=== PATIENT | male | born 1955 | race Caucasian/White ===

== ENCOUNTER 2018-01-09 17:38 | Inpatient (IN) | payer OTHER, MEDICAID, SELFPAY ==
[2018-01-09] VITALS (7 sets, daily range): BP systolic 105–140; BP diastolic 59–85; PULSE 80–111; RESP 10–20; TEMP 36.5–37; O2SAT 93–100; BMI 21.8
--- NOTE | 2018-01-09 18:22 | DI.RAD.S_ITS ---
PROCEDURE: XR CHEST 1V INDICATIONS: increased pain, known renal/gallbladder ca TECHNIQUE: One view of the chest was acquired. COMPARISON: [facility], , CHEST 2 VIEW, 11/11/2014, 10:34. [facility], , CHEST 2 VIEW, 08/03/2012, 14:21. [facility], CR, CHEST 2 VIEW, 05/13/2009, 9:32. FINDINGS: Surgical changes and devices: None. Lungs and pleura: No pleural effusions or pneumothorax. There is a hazy opacity projecting over the left midlung field/perihilar region. Mediastinum: Mediastinal contours appear normal. Heart size is normal. Bones and chest wall: No suspicious bony lesions. Overlying soft tissues appear unremarkable. Chronic right third rib deformity again noted. IMPRESSION: There is a hazy opacity projecting over the left midlung field/perihilar region. This favored to represent atelectasis or superimposition of structures such as the ribs and pulmonary vasculature. However, consider outpatient followup dedicated PA and lateral chest radiographs or CT of the chest if there is clinical concern for malignancy, as this opacity cannot be clearly identified on comparison exams. Dictated by: Yaw Trotter M.D. on 01/09/2018 at 19:48 Approved by: Yaw Trotter M.D. on 01/09/2018 at 19:52
--- NOTE | 2018-01-09 18:23 | ED.ABDPAIN ---
HPI - Abdominal Pain General Chief Complaint: Abdominal Pain Stated Complaint: Abd pain Time Seen by Provider: 01/09/18 18:09 Source: patient and EMS (air lift) Mode of arrival: other (air lift) Limitations: other (etoh) History of Present Illness HPI narrative: This is a 62-year-old male who comes to the hospital for complaint of intractable pain. Patient has known gallbladder and renal cancer, he was diagnosed in August. He states that he is not interested in treatment and has not had any treatment. He states that he drinks alcohol every day and in large quantities. He has been living at home on [address] and has a caregiver name es Ventura. Today and recently his pain has been, too strong for him to control. And he feels that he is not able to care for himself at home. He has some complaints of chest pain and abdominal pain, he denies any shortness of breath. He states that he has nausea and vomiting every day when he wakes up. He states that he has been having bowel movements and urinating regularly. His abdomen has been more distended. He is unable to give me much medical history but states that he had a lot of medications sitting on his desk at home. He received 5 mg of Dilaudid EN route with air left. Patient also has had withdrawals in the past and states he has had seizures, and hallucinations before. Patient has a mother that lives in [facility], he otherwise lives alone. Related Data Home Medications Medication Instructions Recorded Confirmed ibuprofen [Advil Liqui-Gel] 200 mg PO PRN PRN #0 03/14/16 diphenhydramine HCl [Benadryl 25 mg PO Q6HP PRN #0 05/02/16 Allergy] Previous Rx's Medication Instructions Recorded lisinopril-hydrochlorothiazide 1 tab PO QDAY #90 tab 05/02/16 [Zestoretic] Disabled Parking Permit ea #1 05/31/16 ipratropium-albuterol 3 ml INH QID PRN #3 box 08/17/16 albuterol sulfate [Ventolin HFA] 0 puff INH PRN PRN #3 puff 10/26/16 buspirone 15 mg PO SEE INSTRUCTIONS #180 tab 10/26/16 cholecalciferol (vitamin D3) 50,000 unit PO QWEEK #12 cap 10/26/16 fluoxetine 40 mg PO QDAY #90 cap 10/26/16 gabapentin [Neurontin] 0 PO SEE INSTRUCTIONS #450 cap 10/26/16 spironolactone 25 mg OR QDAY #90 tab 10/26/16 tiotropium bromide [Spiriva with 18 mcg INH Q DAY #90 cap 10/26/16 HandiHaler] trazodone 150 mg PO HS #90 tab 10/26/16 Allergies Allergy/AdvReac Type Severity Reaction Status Date / Time bupropion AdvReac Unknown SOMNLESCENC Verified 01/10/18 00:46 E Review of Systems Review of Systems All systems reviewed & are unremarkable except as noted in HPI and below Constitutional Denies fever(s) Cardiovascular Reports chest pain, Denies syncope, Denies leg edema and Denies dyspnea Respiratory Denies cough, Denies dyspnea and Denies wheezing Gastrointestinal Gastrointestinal: Reports abdominal pain, Denies melena, Denies hematochezia, Reports nausea and Reports vomiting (every day) Genitourinary Denies difficulty urinating and Reports flank pain (left) Musculoskeletal Denies back pain Neurologic Denies syncope Allergic/Immunologic Denies wheezing PFSH Surgical History Status post colonoscopy Status post colonoscopy Family History Father Cancer Mother Age: 82 Dementia Social History details: Lives on [address], has caregiver Zoie. household members: none Smoking Status: Current every day smoker alcohol intake: current Exam Narrative Exam Narrative: GENERAL: Alert and oriented x 2, Patient has some confusion about where he is at initially, he is aware he is at the hospital, patient appears intoxicated and smell of etoh in room. HEENT: Head normocephalic, atraumatic, EOMI, pupils reactive, face symmetric, moist mucous membranes NECK: Supple, full range of motion CARDIOVASCULAR: Regular rate and rhythm without murmurs, rubs or gallops. RESPIRATORY: Breath sounds equal bilaterally, no wheezes rales or rhonchi. ABDOMEN: Soft, nontender, Distended. Normoactive bowel sounds all 4 quadrants. No guarding or rebound, rigidity, Patient's abdomen particularly right upper quadrant feels full with a had a hepatomegaly. : No CVA tenderness EXTREMITIES: Normal range of motion, edema. Neurovascularly intact. NEUROLOGICAL: Cranial nerves II through XII grossly intact. Moving all extremities SKIN: Warm, dry, no petechiae, no rashes or lesions. Initial Vital Signs Initial Vital Signs: Vital Signs Temperature 98.6 F 01/09/18 17:39 Pulse Rate 80 01/09/18 17:39 Respiratory Rate 18 01/09/18 17:39 Blood Pressure 140/85 01/09/18 17:39 Pulse Oximetry 100 01/09/18 17:39 Course Orders Ordered: ED Orders 01/09/18 22:18 EKG-12 Lead Routine 01/09/18 23:50 Consult to Dietitian, Adult Routine Folic Acid (Folic Acid) 1 mg PO DAILY [facility] Haloperidol (Haldol) 2 mg IV Q1HR PRN PRN Reason: Hallucinations HYDROMORPHONE TOWEL SORTER (Dilaudid 6 Mg/30 Ml) 6 mg in 30 mls @ 0 mls/hr IV Q8HR [facility] Sodium Chloride (Normal Saline 0.9%) 1,000 mls @ 125 mls/hr IV CONT [facility] Last Admin: 01/10/18 00:56 Dose: 125 mls/hr Lorazepam (Ativan) 0 mg IV CIWAPRN PRN; Protocol PRN Reason: Alcohol Withdrawal Multivitamins (Tab-A-Jessica) 1 tab PO DAILY [facility] Naloxone HCl (Narcan) 0.2 mg IV Q2MIN PRN; Protocol PRN Reason: Opiate Reversal Nicotine (Nicoderm) 21 mg TOP DAILY [facility] Last Admin: 01/10/18 03:54 Dose: 21 mg Ondansetron HCl (Zofran) 4 mg IV Q4HR PRN PRN Reason: Nausea And Vomiting Last Admin: 01/10/18 00:57 Dose: 4 mg Thiamine HCl (Vitamin B-1) 100 mg PO DAILY [facility] Stop: 01/13/18 09:01 Discontinued Medications Hydromorphone HCl (Dilaudid) 1 mg IV NOW ONE Stop: 01/09/18 20:35 Last Admin: 01/09/18 21:40 Dose: 1 mg Hydromorphone HCl (Dilaudid) 2 mg IV NOW ONE Stop: 01/09/18 22:55 Last Admin: 01/09/18 23:02 Dose: 2 mg Nicotine (Nicoderm) 21 mg TOP DAILY [facility] Vital Signs - 8 hr 01/09/18 21:00 01/09/18 22:28 01/09/18 22:50 Temperature 97.7 F Pulse Rate 111 H 94 H 95 H Respiratory Rate 20 12 20 Blood Pressure 110/59 L Blood Pressure [Left Arm] 105/72 134/85 Pulse Oximetry 95 95 96 01/10/18 00:25 Temperature 97.6 F Pulse Rate 95 H Respiratory Rate 20 Blood Pressure 134/83 Blood Pressure [Left Arm] Pulse Oximetry 96 MDM - Abdominal Pain Lab Data Attestation: I reviewed the patient's lab results. Result diagrams: 01/09/18 18:21 01/09/18 18:21 Lab Results 01/09/18 01/09/18 01/09/18 Range/Units 18:21 18:21 18:21 WBC 7.4 (4.5-11.0) X10^3/uL RBC 4.09 L (4.5-5.9) X10^6/uL Hgb 14.5 (13.5-17.5) g/dL Hct 42.5 (41-53) % MCV 103.9 H (80-100) fL MCH 35.6 H (26-34) PG MCHC 34.2 (30-36) % RDW 13.0 (11.6-14.8) % Plt Count 47 L (150-400) X10^3/uL Neut % (Auto) 63.3 (50-75) % Lymph % (Auto) 26.5 (25-40) % [place] % (Auto) 8.5 (3-14) % Eos % (Auto) 0.8 L (2-4) % Baso % (Auto) 0.9 (0-2) % Neut # (Auto) 4700 (2931-7132) /uL PT (10.1-12.7) SECONDS INR (0.9-1.3) APTT (26.4-36.2) SECONDS Sodium 142 (137-145) mmol/L Potassium 3.3 L (3.4-5.1) mmol/L Chloride 97 L (98-107) mmol/L Carbon Dioxide 27 (22-32) mmol/L BUN 3 L (9-20) mg/dL Creatinine 0.50 L (0.66-1.25) mg/dL Estimated GFR > 60.0 (>60) mL/min BUN/Creatinine Ratio 6.0 (6-22) Glucose 90 (80-110) mg/dL Calcium 7.6 L (8.4-10.2) mg/dL Total Bilirubin 2.4 H (0.2-1.3) mg/dL AST 274 H (17-59) IU/L ALT 83 H (21-72) IU/L Alkaline Phosphatase 172 H (38-126) U/L Ammonia 20.0 (9-30) umol/L Total Protein 6.7 (6.3-8.2) g/dL Albumin 3.4 L (3.5-5.0) g/dL Globulin 3.3 (1.7-4.1) g/dL Albumin/Globulin Ratio 1.0 (1.0-2.8) Lipase 125 (23-300) U/L Ethyl Alcohol 291 mg/dL 01/09/18 Range/Units 18:43 WBC (4.5-11.0) X10^3/uL RBC (4.5-5.9) X10^6/uL Hgb (13.5-17.5) g/dL Hct (41-53) % MCV (80-100) fL MCH (26-34) PG MCHC (30-36) % RDW (11.6-14.8) % Plt Count (150-400) X10^3/uL Neut % (Auto) (50-75) % Lymph % (Auto) (25-40) % [place] % (Auto) (3-14) % Eos % (Auto) (2-4) % Baso % (Auto) (0-2) % Neut # (Auto) (5655-1569) /uL PT 11.7 (10.1-12.7) SECONDS INR 1.1 (0.9-1.3) APTT 33 (26.4-36.2) SECONDS Sodium (137-145) mmol/L Potassium (3.4-5.1) mmol/L Chloride (98-107) mmol/L Carbon Dioxide (22-32) mmol/L BUN (9-20) mg/dL Creatinine (0.66-1.25) mg/dL Estimated GFR (>60) mL/min BUN/Creatinine Ratio (6-22) Glucose (80-110) mg/dL Calcium (8.4-10.2) mg/dL Total Bilirubin (0.2-1.3) mg/dL AST (17-59) IU/L ALT (21-72) IU/L Alkaline Phosphatase (38-126) U/L Ammonia (9-30) umol/L Total Protein (6.3-8.2) g/dL Albumin (3.5-5.0) g/dL Globulin (1.7-4.1) g/dL Albumin/Globulin Ratio (1.0-2.8) Lipase (23-300) U/L Ethyl Alcohol mg/dL ECG Data Attestation: I personally reviewed and interpreted this ECG as follows: Interpretation: Sinus rhythm with a rate of 90 P are 174 [place] 81 and QTC of 420. QA V1 and V2 nonspecific ST change. MDM Narrative Medical decision making narrative: Patient has been having issues with intractable pain, he received 5 mg of Dilaudid EN route which has helped him since but pain has returned. His lab work does show changes, his alcohol is 291. He has no signs of withdrawal at this time. Patient is not able to care for himself at home and has a caregiver and we did discuss hospice for a few minutes. He does not want any intervention as far as his cancer care, he would like to return home so that he can at home, he did express an interest in Hospice after it was explained that they can also come to the home he does not have to be in a facility. Spoke with Dr. Porras she accepts for observation for pain control. Plan for TOWEL SORTER, antiemetics, fluids, CIWA protocol for withdrawl per patient hx of seizures 2nd alcohol withdrawl. Discharge Plan Departure Patient Disposition: Admitted as Observation Clinical Impression: Abdominal pain, Alcohol intoxication Discharge Date/Time: 01/09/18 23:47 Interventions: ED Discharge Assessment Last Done: 01/09/18 23:02 Admit Date/Time: 01/09/18 22:39 Admit Provider: Stephanie Porras
--- NOTE | 2018-01-09 18:29 | ED_ITS ---
HPI - Abdominal Pain General Chief Complaint: Abdominal Pain Stated Complaint: Abd pain Time Seen by Provider: 01/09/18 18:09 Source: patient and EMS (air lift) Mode of arrival: other (air lift) Limitations: other (etoh) History of Present Illness HPI narrative: This is a 62-year-old male who comes to the hospital for complaint of intractable pain. Patient has known gallbladder and renal cancer, he was diagnosed in August. He states that he is not interested in treatment and has not had any treatment. He states that he drinks alcohol every day and in large quantities. He has been living at home on [address] and has a caregiver name es Ventura. Today and recently his pain has been, too strong for him to control. And he feels that he is not able to care for himself at home. He has some complaints of chest pain and abdominal pain, he denies any shortness of breath. He states that he has nausea and vomiting every day when he wakes up. He states that he has been having bowel movements and urinating regularly. His abdomen has been more distended. He is unable to give me much medical history but states that he had a lot of medications sitting on his desk at home. He received 5 mg of Dilaudid EN route with air left. Patient also has had withdrawals in the past and states he has had seizures, and hallucinations before. Patient has a mother that lives in [facility], he otherwise lives alone. Related Data Home Medications Medication Instructions Recorded Confirmed ibuprofen [Advil Liqui-Gel] 200 mg PO PRN PRN #0 03/14/16 diphenhydramine HCl [Benadryl 25 mg PO Q6HP PRN #0 05/02/16 Allergy] Previous Rx's Medication Instructions Recorded lisinopril-hydrochlorothiazide 1 tab PO QDAY #90 tab 05/02/16 [Zestoretic] Disabled Parking Permit ea #1 05/31/16 ipratropium-albuterol 3 ml INH QID PRN #3 box 08/17/16 albuterol sulfate [Ventolin HFA] 0 puff INH PRN PRN #3 puff 10/26/16 buspirone 15 mg PO SEE INSTRUCTIONS #180 tab 10/26/16 cholecalciferol (vitamin D3) 50,000 unit PO QWEEK #12 cap 10/26/16 fluoxetine 40 mg PO QDAY #90 cap 10/26/16 gabapentin [Neurontin] 0 PO SEE INSTRUCTIONS #450 cap 10/26/16 spironolactone 25 mg OR QDAY #90 tab 10/26/16 tiotropium bromide [Spiriva with 18 mcg INH Q DAY #90 cap 10/26/16 HandiHaler] trazodone 150 mg PO HS #90 tab 10/26/16 Allergies Allergy/AdvReac Type Severity Reaction Status Date / Time bupropion AdvReac Unknown SOMNLESCENC Verified 01/10/18 00:46 E Review of Systems Review of Systems All systems reviewed & are unremarkable except as noted in HPI and below Constitutional Denies fever(s) Cardiovascular Reports chest pain, Denies syncope, Denies leg edema and Denies dyspnea Respiratory Denies cough, Denies dyspnea and Denies wheezing Gastrointestinal Gastrointestinal: Reports abdominal pain, Denies melena, Denies hematochezia, Reports nausea and Reports vomiting (every day) Genitourinary Denies difficulty urinating and Reports flank pain (left) Musculoskeletal Denies back pain Neurologic Denies syncope Allergic/Immunologic Denies wheezing PFSH Surgical History Status post colonoscopy Status post colonoscopy Family History Father Cancer Mother Age: 82 Dementia Social History details: Lives on [address], has caregiver Zoie. household members: none Smoking Status: Current every day smoker alcohol intake: current Exam Narrative Exam Narrative: GENERAL: Alert and oriented x 2, Patient has some confusion about where he is at initially, he is aware he is at the hospital, patient appears intoxicated and smell of etoh in room. HEENT: Head normocephalic, atraumatic, EOMI, pupils reactive, face symmetric, moist mucous membranes NECK: Supple, full range of motion CARDIOVASCULAR: Regular rate and rhythm without murmurs, rubs or gallops. RESPIRATORY: Breath sounds equal bilaterally, no wheezes rales or rhonchi. ABDOMEN: Soft, nontender, Distended. Normoactive bowel sounds all 4 quadrants. No guarding or rebound, rigidity, Patient's abdomen particularly right upper quadrant feels full with a had a hepatomegaly. : No CVA tenderness EXTREMITIES: Normal range of motion, edema. Neurovascularly intact. NEUROLOGICAL: Cranial nerves II through XII grossly intact. Moving all extremities SKIN: Warm, dry, no petechiae, no rashes or lesions. Initial Vital Signs Initial Vital Signs: Vital Signs Temperature 98.6 F 01/09/18 17:39 Pulse Rate 80 01/09/18 17:39 Respiratory Rate 18 01/09/18 17:39 Blood Pressure 140/85 01/09/18 17:39 Pulse Oximetry 100 01/09/18 17:39 Course Orders Ordered: ED Orders 01/09/18 22:18 EKG-12 Lead Routine 01/09/18 23:50 Consult to Dietitian, Adult Routine Folic Acid (Folic Acid) 1 mg PO DAILY [facility] Haloperidol (Haldol) 2 mg IV Q1HR PRN PRN Reason: Hallucinations HYDROMORPHONE FRUIT BUYER (Dilaudid 6 Mg/30 Ml) 6 mg in 30 mls @ 0 mls/hr IV Q8HR [facility] Sodium Chloride (Normal Saline 0.9%) 1,000 mls @ 125 mls/hr IV CONT [facility] Last Admin: 01/10/18 00:56 Dose: 125 mls/hr Lorazepam (Ativan) 0 mg IV CIWAPRN PRN; Protocol PRN Reason: Alcohol Withdrawal Multivitamins (Tab-A-Jessica) 1 tab PO DAILY [facility] Naloxone HCl (Narcan) 0.2 mg IV Q2MIN PRN; Protocol PRN Reason: Opiate Reversal Nicotine (Nicoderm) 21 mg TOP DAILY [facility] Last Admin: 01/10/18 03:54 Dose: 21 mg Ondansetron HCl (Zofran) 4 mg IV Q4HR PRN PRN Reason: Nausea And Vomiting Last Admin: 01/10/18 00:57 Dose: 4 mg Thiamine HCl (Vitamin B-1) 100 mg PO DAILY [facility] Stop: 01/13/18 09:01 Discontinued Medications Hydromorphone HCl (Dilaudid) 1 mg IV NOW ONE Stop: 01/09/18 20:35 Last Admin: 01/09/18 21:40 Dose: 1 mg Hydromorphone HCl (Dilaudid) 2 mg IV NOW ONE Stop: 01/09/18 22:55 Last Admin: 01/09/18 23:02 Dose: 2 mg Nicotine (Nicoderm) 21 mg TOP DAILY [facility] Vital Signs - 8 hr 01/09/18 21:00 01/09/18 22:28 01/09/18 22:50 Temperature 97.7 F Pulse Rate 111 H 94 H 95 H Respiratory Rate 20 12 20 Blood Pressure 110/59 L Blood Pressure [Left Arm] 105/72 134/85 Pulse Oximetry 95 95 96 01/10/18 00:25 Temperature 97.6 F Pulse Rate 95 H Respiratory Rate 20 Blood Pressure 134/83 Blood Pressure [Left Arm] Pulse Oximetry 96 MDM - Abdominal Pain Lab Data Attestation: I reviewed the patient's lab results. Result diagrams: 01/09/18 18:21 01/09/18 18:21 Lab Results 01/09/18 01/09/18 01/09/18 Range/Units 18:21 18:21 18:21 WBC 7.4 (4.5-11.0) X10^3/uL RBC 4.09 L (4.5-5.9) X10^6/uL Hgb 14.5 (13.5-17.5) g/dL Hct 42.5 (41-53) % MCV 103.9 H (80-100) fL MCH 35.6 H (26-34) PG MCHC 34.2 (30-36) % RDW 13.0 (11.6-14.8) % Plt Count 47 L (150-400) X10^3/uL Neut % (Auto) 63.3 (50-75) % Lymph % (Auto) 26.5 (25-40) % Nance % (Auto) 8.5 (3-14) % Eos % (Auto) 0.8 L (2-4) % Baso % (Auto) 0.9 (0-2) % Neut # (Auto) 4700 (0983-9716) /uL PT (10.1-12.7) SECONDS INR (0.9-1.3) APTT (26.4-36.2) SECONDS Sodium 142 (137-145) mmol/L Potassium 3.3 L (3.4-5.1) mmol/L Chloride 97 L (98-107) mmol/L Carbon Dioxide 27 (22-32) mmol/L BUN 3 L (9-20) mg/dL Creatinine 0.50 L (0.66-1.25) mg/dL Estimated GFR > 60.0 (>60) mL/min BUN/Creatinine Ratio 6.0 (6-22) Glucose 90 (80-110) mg/dL Calcium 7.6 L (8.4-10.2) mg/dL Total Bilirubin 2.4 H (0.2-1.3) mg/dL AST 274 H (17-59) IU/L ALT 83 H (21-72) IU/L Alkaline Phosphatase 172 H (38-126) U/L Ammonia 20.0 (9-30) umol/L Total Protein 6.7 (6.3-8.2) g/dL Albumin 3.4 L (3.5-5.0) g/dL Globulin 3.3 (1.7-4.1) g/dL Albumin/Globulin Ratio 1.0 (1.0-2.8) Lipase 125 (23-300) U/L Ethyl Alcohol 291 mg/dL 01/09/18 Range/Units 18:43 WBC (4.5-11.0) X10^3/uL RBC (4.5-5.9) X10^6/uL Hgb (13.5-17.5) g/dL Hct (41-53) % MCV (80-100) fL MCH (26-34) PG MCHC (30-36) % RDW (11.6-14.8) % Plt Count (150-400) X10^3/uL Neut % (Auto) (50-75) % Lymph % (Auto) (25-40) % [place]ance % (Auto) (3-14) % Eos % (Auto) (2-4) % Baso % (Auto) (0-2) % Neut # (Auto) (0572-9726) /uL PT 11.7 (10.1-12.7) SECONDS INR 1.1 (0.9-1.3) APTT 33 (26.4-36.2) SECONDS Sodium (137-145) mmol/L Potassium (3.4-5.1) mmol/L Chloride (98-107) mmol/L Carbon Dioxide (22-32) mmol/L BUN (9-20) mg/dL Creatinine (0.66-1.25) mg/dL Estimated GFR (>60) mL/min BUN/Creatinine Ratio (6-22) Glucose (80-110) mg/dL Calcium (8.4-10.2) mg/dL Total Bilirubin (0.2-1.3) mg/dL AST (17-59) IU/L ALT (21-72) IU/L Alkaline Phosphatase (38-126) U/L Ammonia (9-30) umol/L Total Protein (6.3-8.2) g/dL Albumin (3.5-5.0) g/dL Globulin (1.7-4.1) g/dL Albumin/Globulin Ratio (1.0-2.8) Lipase (23-300) U/L Ethyl Alcohol mg/dL ECG Data Attestation: I personally reviewed and interpreted this ECG as follows: Interpretation: Sinus rhythm with a rate of 90 P are 174 [place] 81 and QTC of 420. QA V1 and V2 nonspecific ST change. MDM Narrative Medical decision making narrative: Patient has been having issues with intractable pain, he received 5 mg of Dilaudid EN route which has helped him since but pain has returned. His lab work does show changes, his alcohol is 291. He has no signs of withdrawal at this time. Patient is not able to care for himself at home and has a caregiver and we did discuss hospice for a few minutes. He does not want any intervention as far as his cancer care, he would like to return home so that he can at home, he did express an interest in Hospice after it was explained that they can also come to the home he does not have to be in a facility. Spoke with Dr. Porras she accepts for observation for pain control. Plan for FRUIT BUYER, antiemetics, fluids, CIWA protocol for withdrawl per patient hx of seizures 2nd alcohol withdrawl. Discharge Plan Departure Patient Disposition: Admitted as Observation Clinical Impression: Abdominal pain, Alcohol intoxication Discharge Date/Time: 01/09/18 23:47 Interventions: ED Discharge Assessment Last Done: 01/09/18 23:02 Admit Date/Time: 01/09/18 22:39 Admit Provider: Stephanie Porras
[2018-01-09 18:35] LABS: Add Manual Diff / Slide Review NO; Basophils Percent Auto 0.9 % (0-2); Eosinophils Percent Auto 0.8 % (2-4); Hematocrit 42.5 % (41-53); Hemoglobin 14.5 g/dL (13.5-17.5); Lymphocytes Percent Auto 26.5 % (25-40); Mean Corpuscular HGB Conc 34.2 % (30-36); Mean Corpuscular Hemoglobin 35.6 PG (26-34); Mean Corpuscular Volume 103.9 fL (80-100); Monocytes Percent Auto 8.5 % (3-14); Neutrophils Absolute Auto 4700 /uL (3000-5900); Neutrophils Percent Auto 63.3 % (50-75); Red Blood Cell Count 4.09 X10^6/uL (4.5-5.9); White Blood Cell Count 7.4 X10^3/uL (4.5-11.0)
[2018-01-09 18:44] LABS: Alanine Aminotransferase 83 IU/L (21-72); Albumin 3.4 g/dL (3.5-5.0); Alkaline Phosphatase 172 U/L (38-126); Aspartate Aminotransferase 274 IU/L (17-59); Bilirubin Total 2.4 mg/dL (0.2-1.3); Blood Urea Nitrogen 3 mg/dL (9-20); Calcium 7.6 mg/dL (8.4-10.2); Carbon Dioxide 27 mmol/L (22-32); Chloride 97 mmol/L (98-107); Estimated Glomerular Filt Rate > 60.0 mL/min (>60); Ethanol (ETOH) 291 mg/dL; Globulin 3.3 g/dL (1.7-4.1); Glucose 90 mg/dL (80-110); HEMOLYSIS < 15 (0-50); Lipase 125 U/L (23-300); Potassium 3.3 mmol/L (3.4-5.1); Sodium 142 mmol/L (137-145); Total Protein 6.7 g/dL (6.3-8.2)
[2018-01-09 18:54] LABS: Platelet Count 47 X10^3/uL (150-400)
[2018-01-09 19:00] LABS: INR 1.1 (0.9-1.3); Prothrombin Time 11.7 SECONDS (10.1-12.7)
[2018-01-09 19:03] LABS: PTT Partial Thromboplastin Tim 33 SECONDS (26.4-36.2)
[2018-01-09] MEDS: HYDROMORPHONE 1 MG INJ IV (21:40)
[2018-01-09] MEDS: HYDROMORPHONE 0.5 MG INJ 2 MG IV (23:02)
[2018-01-10] VITALS (10 sets, daily range): BP systolic 106–134; BP diastolic 64–88; PULSE 78–134; RESP 16–20; TEMP 36.4–37.7; O2SAT 92–99; BMI 21.7
[2018-01-10] MEDS: SODIUM CHLORIDE 0.9% 1,000 ML 125 ML IV ×2 (00:56→08:34)
[2018-01-10] MEDS: ONDANSETRON 4 MG/2 ML INJ IV (00:57)
[2018-01-10] MEDS: NICOTINE 21 MG PATCH TOP (03:54)
[2018-01-10] MEDS: LORazepam 2 MG/ML SYRINGE IV ×6 (04:54→18:33)
[2018-01-10] MEDS: HYDROMORPHONE PCA 6 MG/30 ML PCA.VIAL IV ×3 (06:20→21:04)
--- NOTE | 2018-01-10 06:36 | PC.NURSE ---
01/10 0636; pt alert and oriented but frequently forgetful and will repeat self. Cooperative with care but very restless and jittery. Pt is very aware of relationship with alcohol and his dependency on it. Frequently stating how he wants a drink. States that alcohol has been main source of pain control as he drinks all day everyday until he passes out. He does not take any medications that are prescribed to him. Lives in motor home and does not leave states to have only left house 3 times in last 2 years. Very reliant on caregiver Bernadette. Bernadette is stated to be the DPOA and healthcare proxy. Frequently nauseated with multiple bouts of emesis. Zofran minimally helpful. CIWA at 7 for most of shift until 0430 with anxiety, shakes and nausea became increasingly apparent. CIWA of 16. Ativan adminstered per protocol, pt rechecked and sleeping. Supplemental O2 administered while pt asleep, with saturations of 97-99% on 2L. Pt using MATTRESS STUFFER stating that it is minimally effective. Unable to urinate, with bladder scan showing >700mls, called with order to place [place].
[2018-01-10] MEDS: FOLIC ACID 1 MG TABLET PO (08:34)
[2018-01-10] MEDS: THIAMINE 100 MG TABLET PO (08:34)
[2018-01-10] MEDS: MULTIVITAMIN 1 TABLET 1 TAB PO (08:34)
--- NOTE | 2018-01-10 08:49 | P.HP_ITS ---
History of Present Illness Date Patient Seen: 01/10/18 Chief complaint: Abd pain Narrative: The patient is a 62-year-old male with a history of renal and gallbladder cancer. He reports he was diagnosed in August of 2017. The patient has opted not to pursue any treatment. He has been home using medical marijuana. He reports the pain has been increasing and severe. He describes a constant dull left lower quadrant pain at 8/10 in intensity. He intermittently will get sharp pain at 10/10 in intensity. The patient has had fever and chills. He describes night sweats he has had associated nausea and vomiting. He denies any hematemesis. He reports 2 episodes of melena. He describes hematuria. The patient wants to stay home and continue comfort measures there. He is requesting help with managing his pain. He denies any shortness of breath. He has no chest pain. He has no headache. He has no blurred vision or double vision. Patient feels he has lost weight but is unsure of how much. He describes fever but is unclear of how high. He drinks daily. He describes drinking 12 cans of beer daily. He has a history of alcohol withdrawal including alcohol withdrawal seizures. Patient also smokes 2 packs per day. He was seen and evaluated in the emergency department. He was admitted to the hospital for management of pain. Patient is open to hospice. Patient History Medical History Alcoholism /alcohol abuse (Acute) Gallbladder cancer (Acute) Renal cell carcinoma (Acute) Tobacco abuse (Acute) Surgical History Status post colonoscopy Status post colonoscopy Family & Social History Social History: household members none Prior Living Arrangements RV Safety & Behavioral: Feels Safe in Current Yes Environment Been Physically Hurt or No Threatened By a Person Suicidal Ideation Description None Suicide Plan Description No Plan Tobacco & Substance use: Tobacco type cigarettes Smoking Status Current every day smoker Smoking packs per day 2 alcohol intake current alcohol intake frequency 3 or more drinks per day Meds Home Medications Medication Instructions Recorded Confirmed Type ibuprofen [Advil Liqui-Gel] 200 mg PO PRN PRN #0 03/14/16 History diphenhydramine HCl [Benadryl 25 mg PO Q6HP PRN #0 05/02/16 History Allergy] lisinopril-hydrochlorothiazide 1 tab PO QDAY #90 tab 05/02/16 Rx [Zestoretic] Disabled Parking Permit ea #1 05/31/16 Rx ipratropium-albuterol 3 ml INH QID PRN #3 box 08/17/16 Rx albuterol sulfate [Ventolin HFA] 0 puff INH PRN PRN #3 puff 10/26/16 Rx buspirone 15 mg PO SEE INSTRUCTIONS #180 tab 10/26/16 Rx cholecalciferol (vitamin D3) 50,000 unit PO QWEEK #12 cap 10/26/16 Rx fluoxetine 40 mg PO QDAY #90 cap 10/26/16 Rx gabapentin [Neurontin] 0 PO SEE INSTRUCTIONS #450 cap 10/26/16 Rx spironolactone 25 mg OR QDAY #90 tab 10/26/16 Rx tiotropium bromide [Spiriva with 18 mcg INH Q DAY #90 cap 10/26/16 Rx HandiHaler] trazodone 150 mg PO HS #90 tab 10/26/16 Rx Allergies Allergy/AdvReac Type Severity Reaction Status Date / Time bupropion AdvReac Unknown SOMNLESCENC Verified 01/10/18 00:46 E Review of Systems Review of Systems All systems reviewed & are unremarkable except as noted in HPI and below Exam Vital Signs (past 8 hours): - 01/10/18 06:21 Pulse Oximetry 99 Oxygen Delivery Method Room Air Oxygen Flow Rate 2 Narrative Exam Narrative: Appearing male with an obvious tremor HEENT: Alopecia, normocephalic atraumatic, extraocular muscles are intact, oropharynx is clear, neck is supple, Lungs: Decreased breath sounds bilaterally with scattered rhonchi Cardiac exam: Regular rate and rhythm normal S1 and S2 with a 2/6 systolic ejection murmur Abdomen: Distended belly, firm palpable mass in the right upper quadrant and right lower quadrant, tenderness in the left lower quadrant, bowel tones are active, no board-like rigidity, Extremities: No edema Neuro exam: Patient is tremulous, awake and appropriate, at times he is forgetful and seems somewhat confused, he moves all the extremities, he has no sensory deficit, his speech is fluent, reflexes are brisk and equal, Tremor is noted on outstretched hand, Objective Labs Result Diagrams: 01/09/18 18:21 01/09/18 18:21 Labs: Laboratory Results - last 24 hr 01/09/18 01/09/18 01/09/18 18:21 18:21 18:21 WBC 7.4 RBC 4.09 L Hgb 14.5 Hct 42.5 MCV 103.9 H MCH 35.6 H MCHC 34.2 RDW 13.0 Plt Count 47 L Neut % (Auto) 63.3 Lymph % (Auto) 26.5 Kingfisher % (Auto) 8.5 Eos % (Auto) 0.8 L Baso % (Auto) 0.9 Neut # (Auto) 4700 PT INR APTT Sodium 142 Potassium 3.3 L Chloride 97 L Carbon Dioxide 27 BUN 3 L Creatinine 0.50 L Estimated GFR > 60.0 BUN/Creatinine Ratio 6.0 Glucose 90 Calcium 7.6 L Total Bilirubin 2.4 H AST 274 H ALT 83 H Alkaline Phosphatase 172 H Ammonia 20.0 Total Protein 6.7 Albumin 3.4 L Globulin 3.3 Albumin/Globulin Ratio 1.0 Lipase 125 Ethyl Alcohol 291 01/09/18 18:43 WBC RBC Hgb Hct MCV MCH MCHC RDW Plt Count Neut % (Auto) Lymph % (Auto) Kingfisher % (Auto) Eos % (Auto) Baso % (Auto) Neut # (Auto) PT 11.7 INR 1.1 APTT 33 Sodium Potassium Chloride Carbon Dioxide BUN Creatinine Estimated GFR BUN/Creatinine Ratio Glucose Calcium Total Bilirubin AST ALT Alkaline Phosphatase Ammonia Total Protein Albumin Globulin Albumin/Globulin Ratio Lipase Ethyl Alcohol Assessment & Plan (1) Renal cancer: Problem details: Will obtain hospice consult to assist with in home management of comfort care Current visit: Yes Status: Acute (2) Gallbladder cancer: Problem details: hospice consult as above Current visit: Yes Status: Acute (3) Hypokalemia: Problem details: will replace Current visit: Yes Status: Acute (4) Thrombocytopenia: Problem details: secondary to alcohol abuse Current visit: Yes Status: Acute (5) Abdominal pain: Problem details: secondary to intraabdominal carcinoma. 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 Will obtain a hospice consult, continue CIWA protocol and improve pain regimen Will replace electrolytes. Quality VTE Deep Vein Thrombosis/Pulmonary Embolism Present on Admission: No
[2018-01-10] MEDS: DOCUSATE 100 MG CAPSULE PO ×2 (08:54→21:01)
[2018-01-10] MEDS: fentaNYL 25 MCG/PATCH TOP (08:54)
--- NOTE | 2018-01-10 09:18 | PC.NURSE ---
Addendum entered by Nannette Jordan R.N. 01/10/18 13:59: pt laying on right side, appears comfortable resting with eyes closed. oxygen sats 94% 2l via cannula Original Note: Addendum entered by Nannette Jordan R.N. 01/10/18 12:42: pt sitting up in bed continues to report having anxiety and is restless moving around in bed, CIWA score 13, medicated with 2mg ativan. encouraged use of DISTRICT MANAGER IN TRAINING for left flank pain. Original Note: Addendum entered by Nannette Jordan R.N. 01/10/18 10:38: pt restless, turning side to side in bed, c/o feeling anxious, CIWA score was 20, 2mg ativan given per protocol. Original Note: Addendum entered by Nannette Jordan R.N. 01/10/18 09:28: pt appears to be resting comfortably at this time, eyes are closed 94% 2l via cannula Original Note: Day Shift Pt awake Alert and able to make needs known. Notes to have significant tremor, see CIWA assessment 24, 2mg IV ativan administered per order. Encouraged use of DISTRICT MANAGER IN TRAINING for pain to left upper quadrant flank pain. Assisted with repositioning for comfort. cont o2 monitoring while sleeping 91-94% 2l via cannula. 25mcg Fentantyl patch placed to left chest. IV fluids infusing per order. Hudson patient to gravity. Pt reports that he also drinks 1-2 coffee mugs of whiskey daily along with 12 pack of beer. Pt is aware of name but repeats self and forgetful. Call light within reach, seizure pad and bed alarm on.
[2018-01-10] MEDS: KCL 40 MEQ IN NS 1,000 ML 125 MEQ IV ×2 (09:26→17:29)
--- NOTE | 2018-01-10 09:27 | CM.DPC ---
Referral faxed to [facility] per Meaghan
--- NOTE | 2018-01-10 13:21 | CM.DANOTE ---
Discharge Planning/Care Management DCP/Assessment Patient is a 62-year-old male with a history of renal and gallbladder cancer. He reports he was diagnosed in August of 2017. The patient has opted not to pursue any treatment. He has been home using medical marijuana. He drinks daily. He describes drinking 12 cans of beer daily. He has a history of alcohol withdrawal including alcohol withdrawal seizures. Patient also smokes [address] Porras has requested a Hospice referral. Patient resides on [address]. CM/Christiano faxed referral to [facility]. [facility] able to have info visit tomorrow, at 1100. Attempted to meet with patient:patient currently on CIWA protocol and currently medicated as needed. Talked about hospice with patient and patient states he did want to learn more but then dosed off during conversation. At this time unsure if patient is able to participate in conversation with Hospice. Plan: Hospice referral? SW to reevaluate patient in morning and update [facility] if patient is able to engage or need to wait till patient detox. CM Discharge Assessment Start: 01/10/18 13:17 Freq: Status: Active Protocol: Document 01/10/18 13:17 (Rec: 01/10/18 13:21 [id number]) Discharge Planning Assessment Assigned Heel Wheeler MICHAEL Gomez Advance Directives? No History Provided By Patient Medical Record Prior Living Arrangements RV Household Members none Independent with ADL's unable to determine Is patient alert and oriented? Yes Comment unable to complete full assessment. Caregiver for Another No Comment Hospice referral. Discharge Plan [facility] Hospice Transportation Arrangement Friend/Kameron or caregiver Zoie to provide. Referrals Initiated Other Additional Comment [facility] Whiteboard Updated in Patient Room with Yes name and ext. # of Heel Wheeler Review Status In Process Please Provide Date Initial DC 01/10/18 Assessment Was Performed Next Review Type Continued Stay Review
--- NOTE | 2018-01-10 15:35 | PC.NURSE ---
Addendum entered by Savannah Vasquez R.N. 01/10/18 21:08: Quietly resting in bed. 02 2l nc sats 93%. No tremors at rest. Calm. Encouraged use of machinist helper marine to manage pain and pt compliant. Original Note: Addendum entered by Savannah Vasquez R.N. 01/10/18 18:30: Tremulous with movement of hands BL. Unable to state day of the week or place. HR 99-100 per monitor. States anxious. Administered 1 mg po ativan. Original Note: Addendum entered by Savannah Vasquez R.N. 01/10/18 17:32: Noted tremors with eating this evening. Will hold ativan until pt completes meal as desire for pt to remain awake and alert while eating/drinking. Original Note: Pt in bed in semi-reclining position. Rouses to voice, but is drowsy d/t ativan administration prior to the beginning of this shift. Speech is slightly slurred and thick. Opens eyes and tracks with conversation. Admits to LUQ abdominal pain /10, but states, it's going down. Denies nausea. Hudson to gravity with scant amount clear, yellow urine. Refuses to wear gown. Bruises to BL UE's. IV fluids infusing as ordered without difficulty to left forearm iv site. Bed alarm in place and curtain open to keep watch on patient. Seizure pads in place.
[2018-01-10] MEDS: SENNOSIDES 8.6 MG TABLET 17.2 MG PO (21:01)
[2018-01-10] MEDS: ALBUTEROL 2.5 MG/3 ML NEB (ADULT) INH (21:58)
[2018-01-11] VITALS (11 sets, daily range): BP systolic 102–127; BP diastolic 66–96; PULSE 64–130; RESP 17–20; TEMP 36.6–37.3; O2SAT 90–100
[2018-01-11] MEDS: KCL 40 MEQ IN NS 1,000 ML 125 MEQ IV ×2 (01:28→09:42)
[2018-01-11] MEDS: ALBUTEROL 2.5 MG/3 ML NEB (ADULT) INH ×3 (05:29→17:03)
[2018-01-11] MEDS: HYDROMORPHONE PCA 6 MG/30 ML PCA.VIAL IV (06:04)
[2018-01-11 06:15] LABS: Blood Urea Nitrogen 3 mg/dL (9-20); Calcium 6.8 mg/dL (8.4-10.2); Carbon Dioxide 27 mmol/L (22-32); Chloride 99 mmol/L (98-107); Eosinophils Percent Auto 1.3 % (2-4); Estimated Glomerular Filt Rate > 60.0 mL/min (>60); Glucose 64 mg/dL (80-110); HEMOLYSIS < 15 (0-50); Hematocrit 36.7 % (41-53); Hemoglobin 12.5 g/dL (13.5-17.5); Lymphocytes Percent Auto 28.1 % (25-40); Mean Corpuscular HGB Conc 33.9 % (30-36); Mean Corpuscular Hemoglobin 35.7 PG (26-34); Mean Corpuscular Volume 105.3 fL (80-100); Monocytes Percent Auto 8.4 % (3-14); Neutrophils Absolute Auto 4200 /uL (3000-5900); Neutrophils Percent Auto 61.2 % (50-75); Platelet Count 41 X10^3/uL (150-400); Potassium 3.7 mmol/L (3.4-5.1); Red Blood Cell Count 3.49 X10^6/uL (4.5-5.9); Red Cell Distribution Width 12.9 % (11.6-14.8); Sodium 136 mmol/L (137-145); White Blood Cell Count 6.9 X10^3/uL (4.5-11.0)
[2018-01-11 06:16] LABS: Add Manual Diff / Slide Review SLIDE REVIEW
[2018-01-11 06:57] LABS: Platelet Estimate Decreased on smear
[2018-01-11 06:58] LABS: Macrocytosis 1+
[2018-01-11] MEDS: DOCUSATE 100 MG CAPSULE PO ×2 (09:38→19:08)
[2018-01-11] MEDS: THIAMINE 100 MG TABLET PO (09:38)
[2018-01-11] MEDS: FOLIC ACID 1 MG TABLET PO (09:39)
[2018-01-11] MEDS: NICOTINE 21 MG PATCH TOP (09:40)
[2018-01-11] MEDS: LORazepam 2 MG/ML SYRINGE IV ×4 (10:00→15:52)
--- NOTE | 2018-01-11 12:43 | P.PN_ITS ---
Subjective Date Patient Seen: 01/11/18 Interval history: Patient is very confused today. He also has hematuria. 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 He is eating and drinking. Hospice consultation is pending. POLST form completed. Exam Vital Signs (past 8 hours): - 01/11/18 04:56 01/11/18 05:29 01/11/18 08:05 Temperature 99.2 F 98.9 F Pulse Rate 96 H 101 H Respiratory Rate 20 17 Blood Pressure 115/66 124/96 H Pulse Oximetry 95 95 96 01/11/18 08:30 01/11/18 08:51 Temperature Pulse Rate Respiratory Rate Blood Pressure Pulse Oximetry 92 90 L Oxygen Delivery Method Room Air Oxygen Flow Rate 1 Narrative Exam Narrative: Confused Male Lungs: clear to auscultation CV: Tachycardic, nl Sl S2 Abd: firm, distended, mildly tender, palpable masses in right upper quadrant Ext: no edema skin: telangiectasias of the chest, bruising of the arms Objective Labs Result Diagrams: 01/11/18 04:56 01/11/18 04:56 Labs: Laboratory Results - last 24 hr 01/11/18 01/11/18 04:56 04:56 WBC 6.9 RBC 3.49 L Hgb 12.5 L Hct 36.7 L MCV 105.3 H MCH 35.7 H MCHC 33.9 RDW 12.9 Plt Count 41 L Neut % (Auto) 61.2 Lymph % (Auto) 28.1 Tift % (Auto) 8.4 Eos % (Auto) 1.3 L Baso % (Auto) 1.0 Neut # (Auto) 4200 Platelet Estimate Decreased on smear RBC Morphology See below Macrocytosis 1+ H Sodium 136 L Potassium 3.7 Chloride 99 Carbon Dioxide 27 BUN 3 L Creatinine 0.50 L Estimated GFR > 60.0 BUN/Creatinine Ratio 6.0 Glucose 64 L Calcium 6.8 L Assessment & Plan (1) Alcohol withdrawal delirium: Problem details: continue CIWA protocol with Ativan Given his delirium will discontinue IV hydration, D/C berger, and continue with Ativan for now Current visit: Yes Status: Acute (2) Thrombocytopenia: Problem details: secondary to alcohol abuse Current visit: Yes Status: Acute (3) Gallbladder cancer: Problem details: hospice consult as above Current visit: Yes Status: Acute (4) Renal cancer: Problem details: Will obtain hospice consult to assist with in home management of comfort care. Likely the etiology of the hematuria Current visit: Yes Status: Acute (5) Abdominal pain: Problem details: secondary to intraabdominal carcinoma. Will continue with Fentanyl patch and prn dilaudid Qualifiers: Abdominal location: Current visit: Yes Status: Acute (6) Intractable abdominal pain: Problem details: pain medications as above Current visit: Yes Status: Acute Quality VTE Deep Vein Thrombosis/Pulmonary Embolism Present on Admission: No
--- NOTE | 2018-01-11 13:00 | CM.DPC ---
DCP/cont Met with patient and patient was able to engage in conversation. Patient remains agreeable to speak with hospice. Patient stated friend/caregiver He Nava([phone]) is his POA. Patient states that an patent attorney with the lastname of haven did the formal POA paperwork. Patient also reports friend/caregiver Kameron Mendoza ([phone] or [phone]). Asked patient about his mom/Juana [phone] since she had called the nursing station asking questions. Patient became agitated when SW to brought up his mom. Phone call from mom/Juana: She was unable to remember why she called and was having difficulty throughout conversation. SW ultimately was not able discuss patient's care as Juana was unable to comprehend. [facility] into see patient. Patient signed consent. [facility] called and requesting updated POLST in order to bill [facility] Porras made aware. SW to fax when available. Hospice could have nursing available early next week, but needs as much notice as possible. ALFREDO called He with patient's approval. He stated she has worked at the [employer] patient has attended daily for 14 years. Patient did make her POA, but He works all day and is unable to fax documentation today. He reports that friend/Kameron will assist patient with getting back home but will need at least 2 days notice. He reports that patient has a good group of 3-4 friends who check in on him daily and plan to provide assistance along side Hospice. SW call Kameron with patient's approval: Kameron stated patient is unable to sit in wheelchair for ferry ride. Kameron will bring a small RV over to for patient to have bed and toilet available during transportation/[place]. Kameron will be at on Monday to visit and will bring POA if not provided to by then. Patient remains in active withdraws and is not medically stable to discharge today. Plan: Patient to discharge home with hospice and supportive friends. Due to patient residing on [place] advance notice of discharge plan is needed for transportation/Kameron and Hospice. SW to fax POLST when complete to Hospice. Still awaiting on POA paperwork.
--- NOTE | 2018-01-11 13:22 | RT ---
Pt instructed proper MDI usage. Spacer issued with pamphlet.
--- NOTE | 2018-01-11 13:50 | PM.CHAP ---
Staff referral. Met briefly with Pt who confirmed that Bernadette is his primary support. Pt. expressed desire to return to [facility] for care. Have been asked by staff to follow up with phone call to Pt's mother. Kt Ramos [phone]
[2018-01-11] MEDS: fentaNYL 50 MCG/PATCH TOP (13:55)
[2018-01-11] MEDS: diazePAM 5 MG TABLET 10 MG PO (14:10)
--- NOTE | 2018-01-11 15:31 | PC.NURSE ---
day shift pt was alert and oriented this AM at start of shift. wanted to get up to the chair and sit which was done, chair alarm placed. Pt does not use his call light, sometimes says out loud he is standing up and sometimes just sets off bed/chair alarm. Spoke with pt and he gave permission to speak with his mother on the phone. Gave mother an update. She called back again about 1 hour later very concerned and remembered some of the previous conversation but not all. CIWA scores were 8 this AM, 9 around noon, then 14 later. Medicated per APR. Pt did not seem to respond to the last dose of IV ativan, notified and PO valium given to pt. Pt wanted to leave the hospital. Told staff that he was getting a ride from his friend however he wasn't here and he needed a phone book to find him. He wanted to leave and wait downstairs for his friend. Notified MD and extra dose of ativan given to pt. Pt no longer asking to leave however still mildly agitated. Catheter removed, pt states after he said he did use a urinal, that he only pees sitting down. Up and down to bathroom several times after berger removal around 1100. urine continues to be red and with some clots. 2 person assist with FWW, gait belt and lots of cueing. Fentanyl patch changed to 50 mcg patch this afternoon and TELETYPESETTER MONITOR stopped. Pt did not c/o pain in afternoon.
--- NOTE | 2018-01-11 15:59 | PC.NURSE ---
Addendum entered by Savannah Vasquez R.N. 01/11/18 21:57: Pt remains quiet in bed with eyes closed on right side. Seizure pads in place. Original Note: Addendum entered by Savannah Vasquez R.N. 01/11/18 19:36: Chair alarm sounds and pt moving overbed table preparing to stand. States needs to toilet. Assist x 1 with walker and gait belt into bathroom. Pt reports increasing pain LUQ now 6/10. Returned to bed and administered iv dilaudid to manage pain. Pt positions self onto right side with head of bed slightly elevated. Bed alarm in place. Original Note: Pt up in chair @ beginning of shift. Attempting to exit chair. Phone call from pt's mother and pt informs mother, I'm being discharged. Pt now exiting chair with statement needs to toilet. Staff x 2 to mobilize pt. Pt is significantly unsteady on feet and requires verbal cueing to ambulate with walker into bathroom. Incontinent of urine and voids scant amount rust colored urine in collection device in toilet. Difficulty lifting self from toilet to standing. Assisted back into bed and administered 1 mg iv ativan for CIWA 8. Tremulous head and trunk with activity. Restless and impulsive. Admits to LUQ pain 4/10 and denies nausea. Pt positions self onto right side and quietly rests with eyes closed upon return to bed. Bed alarm set for pt safety. Seizure pads in place. Room air sats 100%.
[2018-01-11] MEDS: SODIUM CHLORIDE 0.9% FLUSH 10 ML IV ×2 (16:06→19:08)
[2018-01-11] MEDS: chlordiazePOXIDE 25 MG CAPSULE 50 MG PO ×2 (17:24→23:29)
[2018-01-11] MEDS: ACETAMINOPHEN 325 MG TABLET 650 MG PO (19:07)
[2018-01-11] MEDS: SENNOSIDES 8.6 MG TABLET 17.2 MG PO (19:08)
[2018-01-11] MEDS: HYDROMORPHONE 2 MG INJ IV ×2 (19:09→23:52)
[2018-01-12] VITALS (9 sets, daily range): BP systolic 112–142; BP diastolic 73–84; PULSE 98–127; RESP 16–20; TEMP 36.6–38; O2SAT 92–98
[2018-01-12] MEDS: LORazepam 2 MG/ML SYRINGE IV (03:24)
--- NOTE | 2018-01-12 04:21 | PC.NURSE ---
Pt is A and O to self and year, situation. He understands he has cancer. He is honest about his EtOH history, starting drinking at 15 yo and loved it. LS congested with insp and exp wheezes. S1, S2, irregular. Rates generalized pain at 9/10. Did wake up completely confused and agitatied, urgency to pee, then partially unable. Urine is dark javier. Encouraging fluilds.
[2018-01-12] MEDS: ALBUTEROL 2.5 MG/3 ML NEB (ADULT) INH ×3 (05:02→19:10)
[2018-01-12] MEDS: chlordiazePOXIDE 25 MG CAPSULE 50 MG PO (05:38)
[2018-01-12] MEDS: DOCUSATE 100 MG CAPSULE PO ×2 (10:20→18:52)
[2018-01-12] MEDS: SODIUM CHLORIDE 0.9% FLUSH 10 ML IV ×2 (10:20→18:52)
[2018-01-12] MEDS: FOLIC ACID 1 MG TABLET PO (10:20)
[2018-01-12] MEDS: THIAMINE 100 MG TABLET PO (10:20)
[2018-01-12] MEDS: NICOTINE 21 MG PATCH TOP (10:20)
[2018-01-12] MEDS: HYDROMORPHONE 2 MG INJ IV (10:26)
--- NOTE | 2018-01-12 14:07 | PC.NURSE ---
Not done. Pt sleeping. Nurse aware.
--- NOTE | 2018-01-12 14:07 | PC.NURSE ---
day shift pt sleeping this AM, did wake up and urinate 1x for 150 ml. CIWA score done this AM, was a 4. Was asking pt questions and he states i'm not going through DT's. minimal PO intake, sleeping for majority of remainder of shift, allowed pt to sleep.
--- NOTE | 2018-01-12 14:21 | CM.DPC ---
Addendum entered by MICHAEL Colby 01/12/18 15:12: ADD: Per MD, pt could possibly be stable for d/c home tomorrow with Hospice to start services in a few days and MD could write rx for meds needed prior to Hospice services starting. SW called Faustina at [facility] and updated on possible d/c tomorrow and she confirmed as of now the earliest they can open the pt to service is Monday but that they would call pt's friend who will transport him (Kameron Mendoza) directly to make plans. SW attempted to call the 2 phone numbers for Kameron Mendoza and had to leave a msg updating on possible d/c tomorrow. SW then called pt's DONNIE Cutler and updated her on possible d/c tomorrow and she is not sure if Kameron Mendoza can provide transport tomorrow but states she will call him now to update him and ask him to call SW. Plan: SW to follow closely to confirm safe d/c plan for the pt for possibly tomorrow and updating [facility] on d/c and faxing updated POLST form and d/c summary when available. MICHAEL Colby Original Note: DCP Cont: SW updated MD on updated POLST from previous Hospitalist signed by MD but needs pt signature once pt is alert and oriented enough to sign and MD will round on pt later. SW updated [facility] on pt status currently and waiting for POLST to be signed by pt and will then be faxed to Hospice for review. Hospice requesting an update on pt status daily so that services can be set up for pt in a timely manner at d/c. Plan: SW to follow closely for POLST to be faxed to [facility] when signed by pt and give [facility] daily updates on pt status for Hospice planning. Pt's friend Kameron to be bedside tomorrow (Sat) to visit and check on pt status and plans to bring in DPOA pwk for pt file. MICHAEL Colby
--- NOTE | 2018-01-12 15:14 | P.PN_ITS ---
Subjective Date Patient Seen: 01/12/18 Interval history: Patient has been quite groggy since started Librium last night for acute withdrawal. Exam Vital Signs (past 8 hours): - 01/12/18 10:14 Pulse Oximetry 96 Oxygen Delivery Method Room Air Oxygen Flow Rate 0 Narrative Exam Narrative: General: Somnolent but also confused when slightly awakened Objective Labs Result Diagrams: 01/11/18 04:56 01/11/18 04:56 Assessment & Plan Plan: Assessment/Plan Narrative: 1. Renal cancer, gallbladder cancer: Patient has intractable abdominal pain. Started this admission on fentanyl patch 50 mcg. Pain seems better controlled. Plan is to discharge back home to [place] under hospice care. 2. Acute alcohol withdrawal delirium: He is over-sedated with Librium although in overt withdrawal last night. Today he is not appearing in as severe withdrawal. Hold Librium. Continue lorazepam IV/p.o. As needed. 3. ETOH cirrhosis, thrombocytopenia secondary to cirrhosis: As documented, ammonia level only 20. 4. Disposition: Likely discharge home tomorrow, Monday, under care of hospice. His friend on [place] will be primary caregiver. Quality VTE Deep Vein Thrombosis/Pulmonary Embolism Present on Admission: No
--- NOTE | 2018-01-12 17:21 | PC.NURSE ---
Addendum entered by Savannah Vasquez R.N. 01/12/18 19:15: Bed alarm sounds and pt is moving self to edge of bed. States needs to void. Assist x 1 with walker, gait belt. Unsteady, tremulous gait. Hematuria continent and incontinent. Brief changed. Pt able to provide own pericare. Returned to bed and set up for evening meal, which pt refuses. Admits to LUQ pain 08/06 and was given oxycodone as ordered. Clustered pt's care to allow for sleep s/p ativan administration to treat CIWA 11. R.T. in to deliver treatment. IV failed and removed. Not restarted as pt taking oral meds without difficulty. Original Note: Pt lying quietly in bed with eyes closed. No signs of distress or discomfort. Seizure pads in place.
[2018-01-12] MEDS: OXYCODONE IR 5 MG TABLET 10 MG PO (18:50)
[2018-01-12] MEDS: LORazepam 1 MG TABLET 2 MG PO (18:51)
[2018-01-12] MEDS: SENNOSIDES 8.6 MG TABLET 17.2 MG PO (18:51)
[2018-01-13] VITALS (15 sets, daily range): BP systolic 87–125; BP diastolic 56–82; PULSE 91–150; RESP 14–20; TEMP 36.7–37.9; O2SAT 92–100
[2018-01-13] MEDS: LORazepam 1 MG TABLET 2 MG PO ×2 (00:26→17:17)
[2018-01-13] MEDS: ACETAMINOPHEN 325 MG TABLET 650 MG PO (00:27)
--- NOTE | 2018-01-13 04:24 | PC.NURSE ---
Pt VSS, A and O to situation and self, Pt able to sleep and + BTs. LS course with inspiratory and exp wheezes. Intermittent cough. Some restlessness, good relief with 2 mg po Ativan. Fever of 100.4F resolved with 650 mg po APAP. Urine has gone from javier to dark yellow, pt continues to have reduced output, frequency and urgency. Cooperative and able to sleep.
[2018-01-13] MEDS: ALBUTEROL 2.5 MG/3 ML NEB (ADULT) INH ×4 (05:06→17:33)
[2018-01-13] MEDS: OXYCODONE IR 5 MG TABLET 10 MG PO (09:32)
[2018-01-13] MEDS: SODIUM CHLORIDE 0.9% FLUSH 10 ML IV ×2 (10:08→23:38)
[2018-01-13] MEDS: NICOTINE 21 MG PATCH TOP (10:13)
--- NOTE | 2018-01-13 10:51 | PC.NURSE ---
Addendum entered by Claudia Collazo R.N. 01/13/18 15:49: PT unable to work with Pt d/t elevated HR. Original Note: Addendum entered by Claudia Collazo R.N. 01/13/18 13:53: 1345-Pt stood up on own and was seen ambulating in room from chair, when RT asked Pt from [place] if he wanted a treatment, Pt turned with FWW and fell back onto L side with FWW in front of him. This RN witnessed the fall. from nursing station. Pt reports he did not hit his head, did not appear to from my view. Skin check completed with another RN Muriel. RFA with superficial abrasion. Skin is fragile, with multiple other bruises already. When asked why he was up, Pt states I wanted to see what you guys were up to out there Opened curtain to increase visability. BA and chair alarm in use. Pt had not been this impulsive, and repeats education when fall risks discussed. Continue to reinforce. Dr Dodge notified of fall. Original Note: AM shift Pt up to commode with loose stooling. Shaking is significantly worse than when this RN saw Pt at start of shift. C/o pain to ABD 8/10, sweating. IV site had been lost, replaced, IV ativan given for CIWA of 13. Fentanyl patch observed, Pt not sure how effective it is yet, as pain is substantial at this time. Assisted to bed, Dr Dodge into see Pt, and plan for d/c continues for Monday when Kameron, Pt friend will be over [place] to assist in D/c.
--- NOTE | 2018-01-13 10:58 | P.PN_ITS ---
Subjective Date Patient Seen: 01/13/18 Time Patient Seen: 11:25 Interval history: He continues to have abdominal pain consistent with his gallbladder cancer. He appears to be easing out of the alcohol withdrawal. A friend has made plans to bring an RV vehicle over to pick him up, to [place], on Monday when hospice will be available to start service. Exam Vital Signs (past 8 hours): - 01/13/18 05:14 01/13/18 05:53 01/13/18 08:45 Temperature 98.8 F 98.5 F Pulse Rate 124 H 117 H 107 H Respiratory Rate 20 18 17 Blood Pressure 109/56 L 125/82 Pulse Oximetry 96 93 100 01/13/18 09:35 Temperature Pulse Rate 150 H Respiratory Rate 14 Blood Pressure Pulse Oximetry 95 Oxygen Delivery Method Room Air Oxygen Flow Rate 0 Narrative Exam Narrative: He is alert and oriented x3 without signs of delirium tremens. The abdomen is quite tender and moderately distended. The heart rate is tachycardic with regular rhythm and no murmur. The lungs are clear to auscultation bilaterally. There is no ankle edema. Objective Labs Result Diagrams: 01/11/18 04:56 01/11/18 04:56 Assessment & Plan (1) Intractable abdominal pain: Problem details: pain under improved control today. Current visit: Yes Status: Acute (2) Alcohol withdrawal delirium: Problem details: He appears to be near completion of the alcohol withdrawal period. Current visit: Yes Status: Acute (3) Thrombocytopenia: Problem details: secondary to alcohol abuse Current visit: Yes Status: Acute (4) Hypokalemia: Problem details: This was corrected. Current visit: Yes Status: Acute (5) Gallbladder cancer: Problem details: hospice will begin care for him on Monday at home on [facility]. Current visit: Yes Status: Acute (6) Renal cancer: Problem details: Will be going on hospice in a couple of days. Likely the etiology of the hematuria Current visit: Yes Status: Acute (7) Abdominal pain: Problem details: secondary to intraabdominal carcinoma. Will continue with Fentanyl patch and prn dilaudid Qualifiers: Abdominal location: Current visit: Yes Status: Acute Plan: Assessment/Plan Narrative: He will after remain in the hospital pending hospice availability and transportation [place]. [place] and his friends will have to come and pick him up in that context, [place] ride, in [place] back of an [place]. Quality VTE Deep Vein Thrombosis/Pulmonary Embolism Present on Admission: No
--- NOTE | 2018-01-13 10:59 | P.PN_ITS ---
Exam Vital Signs (past 8 hours): - 01/13/18 05:14 01/13/18 05:53 01/13/18 08:45 Temperature 98.8 F 98.5 F Pulse Rate 124 H 117 H 107 H Respiratory Rate 20 18 17 Blood Pressure 109/56 L 125/82 Pulse Oximetry 96 93 100 01/13/18 09:35 Temperature Pulse Rate 150 H Respiratory Rate 14 Blood Pressure Pulse Oximetry 95 Oxygen Delivery Method Room Air Oxygen Flow Rate 0 Objective Labs Result Diagrams: 01/11/18 04:56 01/11/18 04:56 Quality VTE Deep Vein Thrombosis/Pulmonary Embolism Present on Admission: No
--- NOTE | 2018-01-13 12:54 | CM.DPC ---
Addendum entered by MICHAEL Gomez 01/13/18 14:55: Call from Hospice/Rebecca: Nurse unable to see patient that late on Monday. Friend/Kameron in to visit patient. Provided CM with copy of DPOA listing He [place]. Kameron reviewed schedule and is able to take the 0930 ferry to [place] to picker / packer patient around 1030. They will then take the 1235 ferry back to meet nurse after 1330. Called Hospice/Rebecca: Nurse is able to accommodate those hours. Plan: Patient to discharge on Monday around 1030 with hospice and supportive friend. Patient will need priority pass. Original Note: DCP/Hospice Spoke with Kameron Mendoza: He is unable to picker / packer patient till Monday. Kameron has been in communication with Hospice Nurse for services to begin on Monday. Kameron will come on the 1315 ferry from [place]. Called and left voicemail for [facility] updating them on Discharge plan. Hospitalist completed POLST with patient. SW faxed POLST to [facility] as requested. Plan: Home with Hospice and support friends on Monday. Friend/Kameron will picker / packer patient in the afternoon. Patient will need priority boarding pass.
--- NOTE | 2018-01-13 15:28 | PT.IPTN ---
Current Diagnoses Malignant neoplasm of gallbladder (01/09/18) Malignant neoplasm of unspecified kidney, except renal pelvis (01/09/18) Thrombocytopenia, unspecified (01/09/18) Hypokalemia (01/09/18) Alcohol dependence with withdrawal delirium (01/09/18) Unspecified abdominal pain (01/09/18) Physical Therapy Treatment Note M3 PT-IP Subjective Start: 01/13/18 15:21 Freq: NEEDED Status: Active Protocol: Document 01/13/18 15:22 AB (Rec: 01/13/18 15:28 AB [id number]) Subjective Physical Therapy Visit Type Notes checked on pt and pt agreeable to PT. obtained home set up and PLOF. checked BP and O2 sat prior to mobilization: supine with HOB elevated: BP: 109/76 WV: 138 to 145 O2 sat 91%; informed nurse regarding increase resting WV. PT eval hold of for today due to high WV.
[2018-01-14] VITALS (11 sets, daily range): BP systolic 103–121; BP diastolic 66–77; PULSE 72–110; RESP 14–18; TEMP 36.7–37.3; O2SAT 93–97
[2018-01-14] MEDS: OXYCODONE IR 5 MG TABLET 10 MG PO ×3 (01:12→12:50)
[2018-01-14] MEDS: LORazepam 1 MG TABLET 2 MG PO (01:13)
--- NOTE | 2018-01-14 05:01 | PC.NURSE ---
Addendum entered by Alejandra Clifton R.N. 01/14/18 06:34: Friends are Daysi and Kameron, per patient. Pt thought he was in a van driving to ferry and was trying to get out to have a smoke. Original Note: Pt is A and O to self and situation with episodes of confusion; easily reorientated. He is aware that he is going home with his old friends Marisa and Cal, they need to be here by 1030 to make the correct ferry. Pt will have Hospice Care. LS coarse with tight cough, productive, patient is able to pull up phlegm. Pt c/o of generalized pain; adequate relief from 10 mg oxycodone. His CIWA this shift = 9. Pt continues to have dysuria with urgency and frequency issues. He is able to sleep and has been eating and drinking.
[2018-01-14] MEDS: ALBUTEROL 2.5 MG/3 ML NEB (ADULT) INH ×3 (05:45→21:48)
[2018-01-14] MEDS: HALOPERIDOL 5 MG/ML VIAL 2 MG IV (06:27)
[2018-01-14] MEDS: FOLIC ACID 1 MG TABLET PO (08:45)
[2018-01-14] MEDS: NICOTINE 21 MG PATCH TOP (08:48)
[2018-01-14] MEDS: SODIUM CHLORIDE 0.9% FLUSH 10 ML IV ×2 (08:48→21:03)
--- NOTE | 2018-01-14 10:38 | P.PN_ITS ---
Subjective Date Patient Seen: 01/14/18 Interval history: He has no complaints today. He seems to be distracted but says he is doing fine. He has forgotten that his discharge is set up for tomorrow. There is no longer any abdominal pain, apparently. Exam Vital Signs (past 8 hours): - 01/14/18 05:48 01/14/18 06:13 Temperature 98.0 F Pulse Rate 110 H 93 H Respiratory Rate 18 16 Pulse Oximetry 94 93 Oxygen Delivery Method Room Air Oxygen Flow Rate 0 Narrative Exam Narrative: Alert and oriented x3 but appears to be internally distracted, perhaps within mild encephalopathy. Heart is regular rate and rhythm without murmur. Lungs are clear to auscultation bilaterally. Abdomen is soft, bowel sounds positive, there is abdominal fullness. There is no tenderness. Objective Labs Result Diagrams: 01/11/18 04:56 01/11/18 04:56 Assessment & Plan Plan: Assessment/Plan Narrative: 1 Intractable abdominal pain: - pain under control today. Current visit: Yes Status: Acute (2) Alcohol withdrawal delirium: Problem details: Resolved Current visit: Yes Status: Acute (3) Thrombocytopenia: Problem details: secondary to alcohol abuse Current visit: Yes Status: Acute (4) Hypokalemia: Problem details: This was corrected. Current visit: Yes Status: Acute (5) Gallbladder cancer: Problem details: hospice will begin care for him on Monday at home on [facility]. Current visit: Yes Status: Acute (6) Renal cancer: Problem details: Will be going on hospice tomorrow. Likely the etiology of the hematuria Current visit: Yes Status: Acute (7) Abdominal pain: Problem details: secondary to intraabdominal carcinoma. Will continue with Fentanyl patch and prn dilaudid Qualifiers: Abdominal location: Current visit: Yes Status: Acute Plan: Assessment/Plan Narrative: He will remain in the hospital pending hospice availability and transportation to [place]. [place] and his friends will have to come and pick him up in that context, for a [place] ride, in the back of an - tomorrow. It will be crucial to make it to 12:30 p.m. [place] tomorrow. Quality VTE Deep Vein Thrombosis/Pulmonary Embolism Present on Admission: No
--- NOTE | 2018-01-14 11:15 | PT.IIE ---
Current Diagnoses Malignant neoplasm of gallbladder (01/09/18) Malignant neoplasm of unspecified kidney, except renal pelvis (01/09/18) Thrombocytopenia, unspecified (01/09/18) Hypokalemia (01/09/18) Alcohol dependence with withdrawal delirium (01/09/18) Unspecified abdominal pain (01/09/18) Surgical History (Last Reviewed 01/09/18 @ 18:25 by Janette Zendejas DO) Status post colonoscopy Status post colonoscopy Medical History (Last Updated 01/10/18 @ 08:42 by Stephanie Porras MD) Alcoholism /alcohol abuse (Acute) Gallbladder cancer (Acute) Renal cell carcinoma (Acute) Tobacco abuse (Acute) Physical Therapy Inpatient Evaluation/Re-Eval M1 PT/OT-IP Prior Functional Status Start: 01/13/18 15:21 Freq: NEEDED Status: Active Protocol: Document 01/13/18 15:22 AB (Rec: 01/13/18 15:28 AB [id number]) Medical Review Prior Functional Status Medical History Reviewed Yes Communication pt able to make needs known Mobility and Gait stated that he is mod I with all mobilities and ambulation without AD; occasionally uses a SPC for outdoor mobiltiy Social History Household Members none Living Arrangements RV Number of Stairs To Enter/Railing? lives in a motor home with 2 steps with bilateral rails to enter Home Environment High Toilet Walk in Shower Built-In Shower Seat Home Equipment Front Wheel Walker Straight Cane Grab Bars Near Toilet Grab Bars In Shower Additional Social History Comment pt stated that his 2 friends will be assisting him 24/7 at home. M2 PT-IP Current Condition Start: 01/13/18 15:21 Freq: NEEDED Status: Active Protocol: Document 01/14/18 11:15 RCC (Rec: 01/14/18 11:53 RCC [id number]) Physical Therapy Current Condition Current Condition Evaluation Date 01/14/18 Treatment Diagnosis abdominal pain, impaired activity tolerance and gait Precautions Other Precautions pt with renal and gallbladder CA, dx August 2017 and opted for no treatment. ETOH withdrawl, abdominal pain. He had a fall yesterday getting up without assistance. M3 PT-IP Subjective Start: 01/13/18 15:21 Freq: NEEDED Status: Active Protocol: Document 01/14/18 11:15 RCC (Rec: 01/14/18 11:53 RCC [id number]) Subjective Physical Therapy Visit Type Type Initial Evaluation Visit Start Time 10:52 Visit Stop Time 11:15 Total Visit Minutes 23 Number of COMMUNICATIONS SUPERVISOR Visits 0 Physical Therapy Visit Comments Patient Comments pt states he feels weak overall. Patient Goals go home tomorrow Therapy Pain Assessment Pain Present Pain Present Denied Pain M4 PT-IP Mobility and Gait Start: 01/13/18 15:21 Freq: NEEDED Status: Active Protocol: Document 01/14/18 11:15 [facility] (Rec: 01/14/18 11:53 [facility] [id number]) PT-Bed Mobility Assessment Supine to Sit Supine to Sit Standby Assistance Head of Bed Elevated Sit to Supine Sit to Supine Standby Assistance Head of Bed Elevated Scooting Scooting to Edge of Bed Standby Assistance Scooting Up and Down in Bed Standby Assistance PT-Transfer Assessment Sit to and From Stand Sit to and from Stand Standby Assistance Equipment Transfer Assistive Device Gait Belt Front Wheeled Walker Transfers Transfer Destination Bed Transfer Technique Stand Step Pivot Transfer Ability Level of Assist Contact Guard Assistance Gait Assessment Gait Gait Assistance Required: Contact Guard Assist Distance (Feet) 20 Assistive Devices Assistive Device Gait Belt Front Wheeled Walker Gait Deviations General Gait Pattern Ataxic Decreased Stride Length Decreased Feet Clearance Flexed Trunk Narrow Based Gait Step-to Gait Factors Limiting Gait Function Factors Limiting Gait Function Decreased Activity Tolerance Decreased Strength Poor Balance Poor Safety Awareness Comments Gait Comments Pt initially with posterior lean in standing, but able to correct self with CGA and FWW. O2 saturation 92-94% on RA and HR 88-96 bpm during session. PT-Balance Assessment Sitting Balance and Reactions Static Sitting Balance Ability Good Dynamic Sitting Balance Ability Fair Standing Balance and Reactions Static Standing Balance Ability Fair Dynamic Standing Balance Ability Poor Device Used FWW M5 PT-IP Objective Assessments Start: 01/13/18 15:21 Freq: NEEDED Status: Active Protocol: Document 01/14/18 11:15 RCC (Rec: 01/14/18 11:53 [facility] [id number]) Orientation Orientation/Cognition Level of Alertness Alert Gross Range of Motion Lower Extremity ROM Assessment Within Functional Limits Strength Lower Extremity Strength Assessment Bilaterally Impaired Hip hip flexion 3+/5 B Knee knee flexion 3+/5 B, knee extension 3+/5 B M6 PT-IP Treatment Start: 01/13/18 15:21 Freq: NEEDED Status: Active Protocol: Document 01/14/18 11:15 RCC (Rec: 01/14/18 11:53 [facility] [id number]) Physical Therapy Treatment Education Education Provided Safety M7 PT-IP Assessment and Plan Start: 01/13/18 15:21 Freq: NEEDED Status: Active Protocol: Document 01/14/18 11:15 [facility] (Rec: 01/14/18 11:53 [facility] [id number]) PT Summary Assessment and Plan Potential Rehabilitation Potential Fair Status of Condition at Evaluation Unstable Summary Assessment Summary Pt is able to ambulate short distance in the room with no c /o increased pain in WB. Pt's plan is to d/c with hospice care and friend assistance. At this time, pt will need assistance with all mobility given his significant weakness and instability, and would benefit from the use of a FWW but may not be able to fit in small quarters of RV that he lives in (pt has a walker @ home). Pt will stay on PT caseload for 1x/day, for CG training to allow the friend to assist with transfer and pt 's needs (friend is driving the RV that they live in to tomorrow, for hopes of taking pt back to [place] in that same RV). Hospice involved and likely to start tomorrow, Monday, but still feel it is important for his friend to be aware and participate in this pt's care prior to d/c. Goals Other Goals CG will be able to safely transfer and ambulate with pt using FWW x20 ft, and be indep . with gait belt don/doffing prior to d/c. Days to Meet Goals 2 Frequency of Treatment Frequency Of Treatment Once a Day Treatment Plan Other Recommendations and Next Treatment CG training in a.m. for CG to Focus assist with transfer and short gait, as well as education about safe pt handling. Recommendations To Nursing Amount of Assist Needed 1 Person Assist Discharge Recommendations PT Discharge Recommendations Home with 19/09 Assist Other Discharge Recommendations Home on hospice, friend assistance
[2018-01-14] MEDS: LORazepam 2 MG/ML SYRINGE IV (13:15)
[2018-01-14] MEDS: fentaNYL 50 MCG/PATCH TOP (13:39)
--- NOTE | 2018-01-14 16:12 | CM.DPC ---
DCP/Continued: Reviewed chart. Spoke with / in AM rounds. Current plan is for patient to go home tomorrow with friend/Kameron to [place] on hospice. [employer]OACH TR[employer]OTER placed call to Rebecca with admit at Hospice, she confirms plan. Hospice is requesting patient be on 12:30pm sailing to [place] tomorrow 01-15-18. Patient's friend/Kameron is providing transport, and may need therapy assistance. Therapy team aware. In addition, RN aware that it would be helpful for friend/Kameron to obtain prescriptions prior to departure. Friend is supposed to be at [facility] by around 10:30AM tomorrow. Dr. Dodge to leave hand off for Dr. Porras that orders needed in AM. Hospice expected to see patient tomorrow on [place]. DPOA and requested legal information has been faxed to hospice today. P: Pending all coordinates smoothly. Patient to d/c home tomorrow with friend to [place] on Hospice. Hospice requesting physical address of [facility]. Rebecca believes that they have but will leave note for MICHAEL/Ksenia to f/u in AM. MICHAEL Reyes
--- NOTE | 2018-01-14 16:32 | PC.NURSE ---
Am shift Pt cooperative, needing pain medication today. CIWA 11 this AM, better this afternoon. Call from Kameron, who is picking up Pt in AM, phsical address provided for BRIANA.
[2018-01-15] VITALS (9 sets, daily range): BP systolic 89–117; BP diastolic 62–79; PULSE 104–131; RESP 18–20; TEMP 36.3–37.1; O2SAT 89–95
--- NOTE | 2018-01-15 04:52 | PC.NURSE ---
Pt is A and O to self and situation. VSS. Pt slept most of this shift, major reduction in restlessness. LS course and S1, S2. Denies px and N. Looking forward to discharge today.
[2018-01-15] MEDS: ALBUTEROL 2.5 MG/3 ML NEB (ADULT) INH (06:14)
[2018-01-15] MEDS: OXYCODONE IR 5 MG TABLET 10 MG PO (07:47)
[2018-01-15] MEDS: NICOTINE 21 MG PATCH TOP (07:48)
[2018-01-15] MEDS: FOLIC ACID 1 MG TABLET PO (07:54)
[2018-01-15] MEDS: LORazepam 2 MG/ML SYRINGE IV (08:00)
--- NOTE | 2018-01-15 09:06 | PC.NURSE ---
Addendum entered by Claudia Collazo R.N. 01/15/18 14:25: Pt has been drowsy today. Tremors much improved. Quite sedate today, but reports pain much improved. Original Note: Addendum entered by Claudia Collazo R.N. 01/15/18 12:56: Kameron here to pickling operator Pt, and quite drowsy, unsafe to d/c with PT assist into vehicle. Discussed with Ksenia in , and Hospice can work with tomorrow with BLS transport to [place]. D/c for today cancelled. Original Note: Am shift Pt is quite tremulous this AM. Ativan and oxycodone given, Pt is aware of POC and d/c later this AM. Rxs written and sent to family pharmacy to ease d/c. Pt has needed some O2 overnight and is currently on 1L. Spo2 93% Occasioanl moist cough noted. Call light in reach and chair alarm and bed alarm active.
--- NOTE | 2018-01-15 10:50 | PT.IPTN ---
Addendum entered and electronically signed by Amina Siu, PT 01/22/18 13:16: I certify I directly supervised and guided this session. Magdalena Siu, DPT Original Note: Current Diagnoses Malignant neoplasm of gallbladder (01/09/18) Malignant neoplasm of unspecified kidney, except renal pelvis (01/09/18) Thrombocytopenia, unspecified (01/09/18) Hypokalemia (01/09/18) Alcohol dependence with withdrawal delirium (01/09/18) Unspecified abdominal pain (01/09/18) Physical Therapy Treatment Note M2 PT-IP Current Condition Start: 01/13/18 15:21 Freq: NEEDED Status: Active Protocol: Document 01/14/18 11:15 RCC (Rec: 01/14/18 11:53 RCC [id number]) Physical Therapy Current Condition Current Condition Evaluation Date 01/14/18 Treatment Diagnosis abdominal pain, impaired activity tolerance and gait Precautions Other Precautions pt with renal and gallbladder CA, dx August 2017 and opted for no treatment. ETOH withdrawl, abdominal pain. He had a fall yesterday getting up without assistance. M3 PT-IP Subjective Start: 01/13/18 15:21 Freq: NEEDED Status: Active Protocol: Document 01/15/18 10:57 (Rec: 01/15/18 12:23 [id number]) Subjective Physical Therapy Visit Type Type Treatment Note Visit Start Time 10:50 Visit Stop Time 11:17 Total Visit Minutes 27 Number of UPSET WELDING MACHINE OPERATOR Visits 0 Physical Therapy Visit Comments Patient Comments Pt found seated in recliner with very slumped posture. He is minimally responsive, only responds with 1-2 syllables. His friend is here for caregiver training and upon visualizing his friend states that he is definitely not ready to take this level of care. Nursing is notified of pt status. M4 PT-IP Mobility and Gait Start: 01/13/18 15:21 Freq: NEEDED Status: Active Protocol: Document 01/15/18 10:57 (Rec: 01/15/18 12:23 [id number]) PT-Bed Mobility Assessment Scooting Scooting to Edge of Bed Maximum Assistance PT-Transfer Assessment Sit to and From Stand Sit to and from Stand Maximum Assistance 2 Person Assistance Use of Upper Extremities Equipment Transfer Assistive Device Gait Belt Front Wheeled Walker Comments Mobility Comments Resting BP in seated 116/74 HR 133. Pt requiring max x2 for sit <> stand with fww and max cues for hand placement. Requiring assist for pants management (pants were down). Pt stood for ~10 secs with max Ax2 and returned immediately to sitting. BP 98 /62 133. Pt positioned in recliner with feet elevated and rests 8 mins. with cues for deep breathing, manual techniques (see below). BP after 5 mins rest (reclined feet elevated) 96/68 HR 126. Nurse aware. M5 PT-IP Objective Assessments Start: 01/13/18 15:21 Freq: NEEDED Status: Active Protocol: Document 01/14/18 11:15 RCC (Rec: 01/14/18 11:53 RCC [id number]) Orientation Orientation/Cognition Level of Alertness Alert Gross Range of Motion Lower Extremity ROM Assessment Within Functional Limits Strength Lower Extremity Strength Assessment Bilaterally Impaired Hip hip flexion 3+/5 B Knee knee flexion 3+/5 B, knee extension 3+/5 B M6 PT-IP Treatment Start: 01/13/18 15:21 Freq: NEEDED Status: Active Protocol: Document 01/15/18 10:57 (Rec: 01/15/18 12:23 [id number]) Physical Therapy Treatment Education Education Provided Safety Other Treatments Other Treatment Performed Manual techniques to upper traps and SCM to facilitate improved shoulder posture and breathing mechanics with cues for diaphragmatic breathing. M7 PT-IP Assessment and Plan Start: 01/13/18 15:21 Freq: NEEDED Status: Active Protocol: Document 01/15/18 10:57 (Rec: 01/15/18 12:23 [id number]) PT Summary Assessment and Plan Potential Rehabilitation Potential Fair Summary Impairments Strength Balance Coordination Tone Cognition Bed Mobility Transfers Gait Activity Tolerance Progress Towards Goals Slow Progress due to Medical Issues Assessment Summary Pt with evolving status. Generalized weakness, decreased strength and activity tolerance. Pt barely responsive with barely audible 1 syllable answers. Pt able to complete sit <> stand with max Ax2 and fww with max cues for UE placement and significant drop in BP. Caregiver training cancelled this session due to pt change in status. At this time, the pt is unsafe to be transported by caregiver due to lack of postural control, decreased ability to respond, decreased ability to participate in mobility needing maxAx2 with sit <> stand, as well as signs of medical instability noted by pt BP and HR during this session. Nurse aware of pt status. Due to pt status, current recommendations for dc are SNF vs home with 24/7 assist and hospice. Ongoing assessment of pt mobilities is needed. Goals Bed Mobility Goal Minimal Assistance Transfer Goal Minimal Assistance Front Wheeled Walker Gait Goal Minimal Assistance Gait Distance 50 Other Goals 1. pt will up/down 2 steps B rails Analilia no AD or spc. CG will be able to safely transfer and ambulate with pt using FWW x20 ft, and be indep . with gait belt don/doffing prior to d/c. Frequency of Treatment Frequency Of Treatment Once a Day Recommendations To Nursing Amount of Assist Needed 2 Person Assist Discharge Recommendations PT Discharge Recommendations Home with 24/7 Assist SNF Rehab
--- NOTE | 2018-01-15 12:57 | PM.PN.1 ---
Subjective Date Patient Seen: 01/15/18 Interval history: The patient slept thru the night but awoke with signficant pain. He has a [address] patch in place and is getting oxydone three times per day. He is very shaky today and appears confused. Plans were made for discharge home with hospice, but patient was felt to be too unsteady for a safe discharge Exam Vital Signs (past 8 hours): - 01/15/18 05:55 01/15/18 06:16 01/15/18 07:00 Temperature 98.7 F Pulse Rate 131 H 120 H Respiratory Rate 18 18 Blood Pressure 117/79 Pulse Oximetry 89 L 89 L 93 01/15/18 09:09 Temperature Pulse Rate Respiratory Rate Blood Pressure Pulse Oximetry 92 Oxygen Delivery Method Nasal Cannula Oxygen Flow Rate 3 Narrative Exam Narrative: Ill appearing male, groggy and shaky Lungs: decreased breath sounds CV: RRR nl Sl S2 Abd: Soft/ non tender/ non distended Ext: no edema, cyanotic Objective Labs Result Diagrams: 01/11/18 04:56 01/11/18 04:56 Assessment & Plan (1) Intractable abdominal pain: Problem details: pain under improved control today. Current visit: Yes Status: Acute (2) Alcohol withdrawal delirium: Problem details: He appears to be near completion of the alcohol withdrawal period. Will discontinue lorazepam given his unsteady gait Current visit: Yes Status: Acute (3) Thrombocytopenia: Problem details: secondary to alcohol abuse Current visit: Yes Status: Acute (4) Gallbladder cancer: Problem details: hospice will begin care for him on Monday at home on [facility]. Current visit: Yes Status: Acute (5) Renal cancer: Problem details: Will be going on hospice in a couple of days. Likely the etiology of the hematuria Current visit: Yes Status: Acute Quality VTE Deep Vein Thrombosis/Pulmonary Embolism Present on Admission: No
--- NOTE | 2018-01-15 15:46 | CM.DPC ---
DCP Cont: Per MD, pt is medically stable to d/c home with hospice today. ALFREDO provided [facility] pt's physical address for his RV on [place] ([address]). RN got pt's meds filled downstairs at [facility] and pt's friend Kameron arrived for transport of the pt home today. Pt was very painful this morning after limited meds through the night and had to provide a fair amount of pain meds to keep pt comfortable. PT attempted to get pt up and ready for transport home via friend POV and pt is not currently able to hold himself upright safely for transport via POV and recommending Ambulance transport. SW met with pt's friend Kameron as pt himself was too drowsy and friend also agreeable with ambulance transport for safety and not comfortable with transporting pt himself. SW discussed that ambulance transport not guaranteed to be paid by insurance and could have a large bill in the mail and Kameron feels its still necessary for pt to go via ambulance. ALFREDO called Ambulance and [facility] and neither have availability for transport today but Ambulance can provide BLS transport [place] [address] [place] but requesting [facility] help with transport of the pt home from ferr landing. ALFREDO called [facility] ([phone]) and confirmed that they can provide transport from [facility] landing to pt's home tomorrow and will coordinate with Ambulance dispatch crew. [facility] also coordinated with [facility] staff. Friend to go back to [place] this afternoon and plans to cancel his plans for tomorrow to be available for pt d/c home with Hospice tomorrow. ALFREDO called Hospice and updated on pt status and they confirm they can open the pt to service tomorrow 01/16/18 [place]. ALFREDO received a call from pt's friend Kameron in the afternoon stating that now he will not be available to be with pt tomorrow at d/c for [facility] to open pt to service and now has major concerns with pt d/c home and states pt will not have 24/7 care from them and feels pt should be placed somewhere or stay in the hospital. ALFREDO called [facility] and left a message to further discuss d/c planning needs and to determine safe d/c plan. Plan: SW to follow closely right away in the morning to determine if Ambulance transport needs to be cancelled and updating [facility]. SW to discuss d/c needs with DPOA to now determine if pt needs to be placed in a facility for 24/7 care and Hospice since home with Hospice does not currently seem like a safe option, pt has not seemed to be able to participate in d/c discussion today. MICHAEL Colby
--- NOTE | 2018-01-15 16:49 | PC.NURSE ---
ASSISTED TO STAND FOR URINAL,BRIEF WET,PATIENT VERY WEAK,UNSTEADY STANDING WITH WALKER AND x2 ASSIST.
[2018-01-15] MEDS: DOCUSATE 100 MG CAPSULE PO (21:05)
[2018-01-15] MEDS: SODIUM CHLORIDE 0.9% FLUSH 10 ML IV (21:06)
[2018-01-15] MEDS: SENNOSIDES 8.6 MG TABLET 17.2 MG PO (21:06)
[2018-01-16] VITALS (8 sets, daily range): BP systolic 97–98; BP diastolic 58–66; PULSE 86–99; RESP 14–18; TEMP 37.2; O2SAT 93–99
[2018-01-16] MEDS: OXYCODONE IR 5 MG TABLET 10 MG PO ×3 (00:32→10:39)
[2018-01-16] MEDS: ALBUTEROL 2.5 MG/3 ML NEB (ADULT) INH ×2 (03:56→09:59)
--- NOTE | 2018-01-16 10:36 | PM.DS.1 ---
History of Present Illness Chief complaint: Abd pain Narrative: The patient is a 62-year-old male with a history of renal and gallbladder cancer. He reports he was diagnosed in August of 2017. The patient has opted not to pursue any treatment. He has been home using medical marijuana. He reports the pain has been increasing and severe. He describes a constant dull left lower quadrant pain at 8/10 in intensity. He intermittently will get sharp pain at 10/10 in intensity. The patient has had fever and chills. He describes night sweats he has had associated nausea and vomiting. He denies any hematemesis. He reports 2 episodes of melena. He describes hematuria. The patient wants to stay home and continue comfort measures there. He is requesting help with managing his pain. He denies any shortness of breath. He has no chest pain. He has no headache. He has no blurred vision or double vision. Patient feels he has lost weight but is unsure of how much. He describes fever but is unclear of how high. He drinks daily. He describes drinking 12 cans of beer daily. He has a history of alcohol withdrawal including alcohol withdrawal seizures. Patient also smokes 2 packs per day. He was seen and evaluated in the emergency department. He was admitted to the hospital for management of pain. Patient is open to hospice. Discharge Providers Date of admission: 01/09/18 22:39 Consults: 01/09/18 23:50 Consult to Dietitian, Adult Routine Comment: Reason For Exam: alcohol withdwal 01/10/18 08:35 Consult to Hospice Referral Routine Comment: 01/10/18 15:54 Consult to Dietitian, Adult Routine Comment: Reason For Exam: alcohol abuse 01/13/18 12:33 Consult to Physical Therapy Evaluate & Treat Comment: Physician Instructions: Evaluate and Treat Discharge provider: Stephanie Porras MD Discharge Date: 01/16/18 Summary Discharge Diagnosis: Metastatic Renal Cell Ca Metastatic Gallbladder Cancer Alcohol Abuse Delerium Tremens COPD Exacerbation Chronic Pain Hospital Course: Patent was admitted to the hospital for intractable pain secondary to his metastatic cancer. He has a history of alcohol abuse and developed delerium tremons during the hospital. He was treated with ativan. The patient was placed on a fentanyl patch with oxycodone for break thru pain. He was seen by PT/OT. The patient was referred to Hospice. I spoke to his DPOA Deysi who agreed to meet him and arrange for friends to check on him at his home. The patient is high risk for failure but really wants to go home with hospice. While it was felt that this was a suboptimal plan as he would be best served with 24 hour care, we elected to discharge the patient home with hospice. Status at Discharge Functional status at discharge: uses cane/walker Overall status at discharge: patient is not back to baseline Time Spent with Patient Less than 30 minutes Exam Vital Signs (past 8 hours): - 01/16/18 04:00 01/16/18 04:20 01/16/18 07:00 Pulse Rate 99 H 99 H Respiratory Rate 18 16 Blood Pressure 98/66 Pulse Oximetry 95 95 95 01/16/18 08:02 01/16/18 08:03 01/16/18 10:02 Pulse Rate 86 Respiratory Rate 14 Blood Pressure Pulse Oximetry 95 93 Oxygen Delivery Method Room Air Oxygen Flow Rate 2 Narrative Exam Narrative: Pleasant male awake and alert, somewhat unsteady with ambulation LUngs: decreased breath sounds CV: RRR nl Sl S2 Abd: soft/ firm palpable masses noted in the abdomen, no rebound, mild left upper quadrant tenderness Ext: trace edema Objective Labs Result Diagrams: 01/11/18 04:56 01/11/18 04:56 Discharge Plan Discharge Plan Patient Disposition: Hospice - Home Discharge Med Rec/Prescriptions Prescriptions: New fentanyl 50 mcg/hr Patch 72 Hour 50 mcg Topical Q72H Qty: 3 RF: 0 sennosides [senna] 8.6 mg Tablet 17.2 mg PO BEDTIME Qty: 30 RF: 0 bisacodyl 10 mg Suppository 10 mg DE DAILY PRN (Reason: Constipation) 7 Days RF: 0 docusate sodium 100 mg Capsule 100 mg PO BID Qty: 20 RF: 0 lorazepam 1 mg Tablet 2 mg PO Q4HR PRN (Reason: Alcohol Withdrawal) Qty: 20 RF: 0 oxycodone 5 mg Tablet 10 mg PO Q3HR PRN (Reason: Pain, Severe (7-10)) Qty: 30 RF: 0 Discontinued ibuprofen [Advil Liqui-Gel] 200 MG capsule 200 mg PO PRN PRNQty: 0 RF: 0 diphenhydramine HCl [Benadryl Allergy] 25 MG tablet 25 mg PO Q6HP PRNQty: 0 RF: 0 lisinopril-hydrochlorothiazide [Zestoretic] 10 MG/12.5 MG tablet 1 tab PO QDAY Qty: 90 RF: 1 fluoxetine 40 MG capsule 40 mg PO QDAY Qty: 90 RF: 3 gabapentin [Neurontin] 300 MG capsule PO SEE INSTRUCTIONS Qty: 450 RF: 3 buspirone 15 MG tablet 15 mg PO SEE INSTRUCTIONS Qty: 180 RF: 3 spironolactone 25 MG tablet 25 mg OR QDAY Qty: 90 RF: 1 cholecalciferol (vitamin D3) 50,000 UNIT capsule 50,000 unit PO QWEEK Qty: 12 RF: 1 trazodone 150 MG tablet 150 mg PO HS Qty: 90 RF: 1 No Action ipratropium-albuterol 3 ML solution for nebulization 3 ml INH QID PRN (Reason: Shortness Of Breath) RF: 0 albuterol sulfate [Ventolin HFA] 90 MCG/PUFF HFA aerosol inhaler INH PRN PRN (Reason: Shortness Of Breath Or Wheezing) RF: 0 Disabled Parking Permit 1 ea CONT RF: 0 tiotropium bromide [Spiriva with HandiHaler] 18 MCG capsule, w/inhalation device 18 mcg INH Q DAY RF: 0 Provider Discharge Instructions Diet: Diet as Tolerated Activity: as tolerated Oxygen: 2 liters as needed Visit Report/Discharge Packet Visit Report Forms: Stroke Signs & Symptoms Discharge Data Attending Provider: Stephanie Porras Admden Date/Time: 01/09/18 22:39 Quality VTE Deep Vein Thrombosis/Pulmonary Embolism Present on Admission: No
[2018-01-16] MEDS: DOCUSATE 100 MG CAPSULE PO (10:38)
[2018-01-16] MEDS: NICOTINE 21 MG PATCH TOP (10:39)
[2018-01-16] MEDS: FOLIC ACID 1 MG TABLET PO (10:39)
--- NOTE | 2018-01-16 11:13 | CM.DPC ---
Addendum entered by Shelby De La Fuente 01/16/18 11:30: Both DPOA He Nava and Jignesh Sylvester aware of current recommendations of around the clock care giving for safety. Again, He reports that she will do her best to get patient set up appropriately in his residence and get as much additional help as possible. , MICHAEL, Hospice aware and in agreement. MICHAEL Reyes Original Note: Addendum entered by Shelby De La Fuente 01/16/18 11:15: DCP/continued: Reviewed chart. Spoke with Dr. Porras this AM re: safe d/c plan. Initial plan was for patient to discharge home yesterday 01-15-18 with friends as caregivers and hospice. Per staff and notes, friend's unable to commit to care for patient 19/09. SIGNALS COLLECTION TECHNICIAN placed call to [facility] Bernadette cell# [phone] and Jignesh Sylvester ph# [phone] re: above. Bernadette reports that this is correct that they will not be able to provide around the clock care but she and some of patient's friend's will attempt to piece together as much care giving time as possible. Bernadette is DPOA and reports that she wants patient home. She had promised patient that she would not put him in facility. Placed call to Rebecca at hospice. She confirms that she has spoken with [facility] and that they will open patient today at his residence. Bernadette plans to be there meet with hospice as well. Visit scheduled for approximately 2:00pm. Met with patient to discuss plan. Patient much more alert today but orientation questionable. Patient aware and agreeable to return home. Spoke with Dr. Porras and she was provided with DPOA phone number to call to answer any questions. SIGNALS COLLECTION TECHNICIAN encouraged DPOA to reach out to [facility] and patient's friend's for assistance. DPOA anticipates that patient will be fine once settled in. Asked RIGO/Paige to call [facility] to confirm transport today. In addition, SIGNALS COLLECTION TECHNICIAN called [facility] ph# [phone]. They confirmed that they will be picking up patient at [facility]. They will take patient to his residence. Provided them with DPOA(S) name and numbers for directions and questions if needed. D/C summary faxed to hospice. Packet made to take with patient which included original DPOA paperwork, POLST, scripts, and d/c summary. P: Home today via non-urgent BLS transport. Patient unable to safely transfer via w/c to [place]. signed non-urgent BLS form. RN updated. MICHAEL Reyes Original Note: Discharge Planning/Care Management CM Discharge Assessment Start: 01/10/18 13:17 Freq: Status: Active Protocol: Document 01/10/18 13:17 (Rec: 01/10/18 13:21 [id number]) Discharge Planning Assessment Assigned Duct Maker MICHAEL Gomez Advance Directives? No History Provided By Patient Medical Record Prior Living Arrangements RV Household Members none Independent with ADL's unable to determine Is patient alert and oriented? Yes Comment unable to complete full assessment. Caregiver for Another No Comment Hospice referral. Discharge Plan Hospice [facility] Transportation Arrangement Friend/Kameron or caregiver Zoie to provide. Referrals Initiated Other Additional Comment [facility] Whiteboard Updated in Patient Room with Yes name and ext. # of Duct Maker Review Status In Process Please Provide Date Initial DC 01/10/18 Assessment Was Performed Next Review Type Continued Stay Review Document 01/14/18 16:12 KJS (Rec: 01/14/18 16:19 KJS [id number]) Discharge Planning Assessment Assigned Duct Maker MICHAEL Gomez Advance Directives? No History Provided By Patient Medical Record Prior Living Arrangements RV Household Members none Independent with ADL's unable to determine Is patient alert and oriented? Yes Comment unable to complete full assessment. Caregiver for Another No Comment Hospice referral. Discharge Plan [facility] Transportation Arrangement Friend/Kameron or caregiver Zoie to provide. Referrals Initiated Other Additional Comment [facility] Whiteboard Updated in Patient Room with Yes name and ext. # of Duct Maker Review Status In Process Please Provide Date Initial DC 01/10/18 Assessment Was Performed Next Review Type Continued Stay Review 01/14/18 16:12 CM Disc. Plan Continued by Shelby De La Fuente DCP/Continued: Reviewed chart. Spoke with / in AM rounds. Current plan is for patient to go home tomorrow with friend/Kameron to [place] on hospice. SIGNALS COLLECTION TECHNICIAN placed call to Rebecca with admit at Hospice, she confirms plan. Hospice is requesting patient be on 12:30pm sailing to [place] tomorrow 01-15-18. Patient's friend/Kameron is providing transport, and may need therapy assistance. Therapy team aware. In addition, RN aware that it would be helpful for friend/Kameron to obtain prescriptions prior to departure. Friend is supposed to be at [facility] by around 10:30AM tomorrow. Dr. Dodge to leave hand off for Dr. Porras that orders needed in AM. Hospice expected to see patient tomorrow on [place]. DPOA and requested legal information has been faxed to hospice today. P: Pending all coordinates smoothly. Patient to d/c home tomorrow with friend to [place] on Hospice. Hospice requesting physical address of [place] residence. Rebecca believes that they have but will leave note for MICHAEL/Ksenia to f/u in AM. MICHAEL Reyes Initialized on 01/14/18 16:12 - END OF NOTE Document 01/16/18 11:06 KJS (Rec: 01/16/18 11:13 KJS [id number]) Discharge Planning Assessment Assigned Duct Maker MICHAEL Reyes DPOA/Assigned Designee Name He Leighaver ph# [phone] and Jignesh Sylvester ph# [phone] Advance Directives? Yes Advance Directives on File Yes History Provided By Patient Medical Record Has Patient been admitted in last 30 No days? Prior Living Arrangements RV Household Members none Type of transporation used prior to Relies on Others admit Independent with ADL's No: unable to determine Is patient alert and oriented? No Needs Assistance With Bathing Grooming Meal Prep Toileting Managing Medications Home Chores / Shopping Comment unable to complete full assessment. Caregiver for Another No Comment Hospice referral. Barriers to Discharge Yes Comment Patient does not have 24/7 caregiving. Discharge Plan [facility] Transportation Arrangement Non-Urgent BLS transport scheduled for today 01-16-18. RN notified that patient will be picked up at approximately 11:30AM. Referrals Initiated Other Additional Comment [facility] Whiteboard Updated in Patient Room with Yes name and ext. # of Duct Maker Review Status In Process Please Provide Date Initial DC 01/16/18 Assessment Was Performed Next Review Type Continued Stay Review
--- NOTE | 2018-01-16 11:44 | PC.NURSE ---
AM Shift pt AO, pleasant, and expressing interest to go home. Patient unsteady with ambulation, 2PA, with FWW and gaitbelt. Up to BSC to void, mixed incontinence and changed brief. Gave pt a quick miguel ángel-area bath. pt c/o 8/10 abdominal (left flank) pain, tender to the touch, and administered 10mg oxycodone. New nicotine patch applied to left upper arm (removed old patch from right upper arm).
--- NOTE | 2018-01-16 11:49 | PC.NURSE ---
fall at 1120 I responded to a loud noise from the patient's room, upon observation from the computer I did not see patient in his bed and immediately responded, found pt down on floor. Patient AO and able to communicate needs. I called for my student nurses help. Patient told us that he was getting his cane because I didn't want to forget it. Patient's belongings were all packed up (with cane) on window bench waiting for discharge at 1130. Student nurse and I got pt up and back into bed and performed a head to toe assessment, new abrasion to his right forearm identified (Allyvn applied). No new pain, no other bruises noted. VS obtains and baseline for pt (118/80, 104, 99.1, 97% RA). EMS arrived at 1135 and transporting pt via stretcher. All belongings packed up, including cane. Shoes on pt. Cell phone and wallet in belongings bag. pt DC'ed from floor at 1145.
== END 2018-01-16 11:45 | disposition hospice, home (50) | DRG 861 ==
LOC: ED 19:02 → AC 22:58
PROVIDERS: Admitting Provider Internal Medicine; Emergency Provider Emergency Medicine; Visit Provider Internal Medicine
DX: G89.3 Neoplasm related pain (acute) (chronic) (principal); C64.9 Malignant neoplasm of unspecified kidney, except renal pelvis; R31.0 Gross hematuria; C23 Malignant neoplasm of gallbladder; E87.6 Hypokalemia; F10.231 Alcohol dependence with withdrawal delirium; Y90.8 Blood alcohol level of 240 mg/100 ml or more; F17.210 Nicotine dependence, cigarettes, uncomplicated; D69.6 Thrombocytopenia, unspecified; Z66 Do not resuscitate; J44.1 Chronic obstructive pulmonary disease with (acute) exacerbation
CPT/HCPCS: 36415; 71045; 80048; 80053; 80320; 82140; 83690; 85025; 85610; 85730; 93005; 94640; 94760; 96374; 96375; 97112; 97163; 97530; 99283; 99285; J1170; J1630; J2060; J2405; J3480; J7613